=== PATIENT | male | born 1960 ===

== ENCOUNTER 2017-06-28 08:08 | Day surgery (SDC) | payer OTHER ==
[2017-06-23 14:53] VITALS: BMI 32.9
[2017-06-28] MEDS ORDERED: Propofol 10 mg/ml Inj (20 ML) ONE (09:15)
[2017-06-28] MEDS ORDERED: Lactated Ringer's 1,000 ML IV ONE (09:17)
[2017-06-28 09:20] VITALS: RESP 18
[2017-06-28] MEDS ORDERED: cefTRIAXone (Rocephin) 1 gm Inj ONE (09:43)
[2017-06-28] MEDS ORDERED: cefTRIAXone (Rocephin) 1 gm Inj IM ONE (10:45)
[2017-06-28] MEDS ORDERED: Dexamethasone 4 mg/1 ml ONE (10:48)
[2017-06-28] MEDS ORDERED: HYDROmorphone 0.5 mg/0.5 ml ISec IVP PRN (11:09)
[2017-06-28] MEDS ORDERED: Lactated Ringer's 1,000 ML IV SCH (11:09)
[2017-06-28 14:13] VITALS: BP 117/70; PULSE 79; TEMP 97.5; O2SAT 95
--- NOTE | 2017-06-28 20:14 | OP ---
PROCEDURE DATE: 06/28/2017 PREOPERATIVE DIAGNOSIS: Urethral stricture. POSTOPERATIVE DIAGNOSES: Urethral stricture and multiple bladder calculi. PROCEDURE PERFORMED: Cystoscopy with urethral dilatation followed by evacuation of multiple small bladder calculi. DESCRIPTION OF PROCEDURE: The patient was placed on the operating table in a dorsal lithotomy position. The area of the groin was draped and prepped in sterile manner. He was given general anesthesia. I could not insert the #21 cystoscope into the urethra, had to dilate from a size 14 to a size 24 Palauan. Following this, I was able to insert the cystoscope, entered into the bladder. In the bladder, there was multiple small bladder calculi noted throughout the bladder floor. I was able to aspirate those out. I evaluated the bladder completely. There was no evidence of any lesions in the bladder. No evidence of any diverticuli. The prostate, there seemed to be many of these small calculi at the level of the skin of the prostatic urethra, but otherwise, the prostatic urethra appeared to be amply open. Once I aspirated all the visual calculi, I then removed the cystoscope and inserted a #24-Palauan 2-way Navarrete for dilatation purposes. The patient then was taken from the operating room in good condition. No blood loss. Nieves Coates MD
== END 2017-06-28 14:21 | disposition home or self-care (01) ==
LOC: H.OPSURG 08:08
PROVIDERS: ATTEND Urology
DX: N35.9 Urethral stricture, unspecified (principal); N40.0 Benign prostatic hyperplasia without lower urinary tract symptoms; E11.9 Type 2 diabetes mellitus without complications; E78.5 Hyperlipidemia, unspecified; I10 Essential (primary) hypertension

== ENCOUNTER 2017-08-16 03:51 | Emergency (ER) | payer OTHER ==
[2017-08-16 03:52] VITALS: BMI 32.9
[2017-08-16 04:04] VITALS: BP 142/81; PULSE 68; RESP 18; TEMP 98.1; O2SAT 98
[2017-08-16] MEDS ORDERED: Sodium Chloride 0.9% 1,000 ML IV SCH (04:45)
--- NOTE | 2017-08-16 04:51 | ED PDOC ---
HPI: Abdomen <Rafaela Gruber - Last Filed: 08/16/17 05:13> Chief Complaint (Provider): Abdominal Pain History Per: Patient History/Exam Limitations: no limitations Onset/Duration Of Symptoms: Days (1) Current Symptoms Are (Timing): Still Present Pain Scale Rating Of: 8 Location Of Pain/Discomfort: RLQ (radiating into groin) Quality Of Discomfort: Sharp Associated Symptoms: denies: Fever, Chills, Nausea, Vomiting, Diarrhea Alleviating Factors: None <Trang Morin - Last Filed: 08/16/17 06:02> Time Seen by Provider: 08/16/17 04:14 Chief Complaint (Nursing): Abdominal Pain Additional Complaint(s): 57 y/o M with PMH including NIDDM2 and bladder calculi presents with 1 day history of severe right flank pain radiating into the right groin. Patient reports first noticing gross hematuria for the last 3 days. He then noted a brief episode of flank pain 1 day ago which was self limited. Two hours prior to assessment, patient began experiencing moderate/severe pain which has been constant. No alleviating or aggravating factors noted. Patient denies associated fevers, chills, chest pain, sob, nausea, vomiting or diarrhea. Notably, patient had a cystoscopy performed on 06/28/17 due to urethral stricture which detected multiple bladder calculi, which were evacuated at that time. Patient had been planning to follow up with his urologist, Dr Coates, but has not followed up to date. PMD: Dr Shari King (Trang Morin) Supervising Attending Note - Supervising Attending Note The Documented history was done by the: [employer], Attending Physician The documented physical exam was done by the: [employer], Attending Physician The documented procedures were done by the: [employer], Attending Physician - Attestation: I have personally seen and examined this patient.: Yes I have fully participated in the care of the patient.: Yes I have reviewed all pertinent clinical information: Yes <Rafaela Gruber - Last Filed: 08/16/17 05:13> Past Medical History <Rafaela Gruber - Last Filed: 08/16/17 05:13> - Medical History PMH: Diabetes (NIDDM2), Hypercholesterolemia Denies: Chronic Kidney Disease - Family History Family History: States: Unknown Family Hx <Trang Morin - Last Filed: 08/16/17 06:02> Vital Signs: Last Vital Signs Temp 98.1 F 08/16/17 03:57 Pulse 68 08/16/17 03:57 Resp 18 08/16/17 03:57 BP 142/81 08/16/17 03:57 Pulse Ox 98 08/16/17 06:01 - Home Medications Home Medications: Ambulatory Orders Medication Instructions Recorded Aspirin [Aspirin Chewable] 81 mg PO DAILY 06/28/17 Glimepiride [Amaryl] 1 mg PO BID 06/28/17 MetFORMIN [glucoPHAGE] 1,000 mg PO BID 06/28/17 Omega3/Dha/Epa/Fish Oil/Vit D3 1 units PO BID 06/28/17 [[place]-3 + Vitamin D3 Softgel] Pravastatin Sodium [Pravachol] 20 mg PO HS 06/28/17 Ciprofloxacin HCl [Cipro] 500 mg PO BID #14 tablet 08/16/17 Tamsulosin [Flomax] 0.4 mg PO DAILY #15 cap 08/16/17 - Allergies Allergies/Adverse Reactions: Allergies Allergy/AdvReac Type Severity Reaction Status Date / Time No Known Allergies Allergy Verified 06/28/17 08:38 Review of Systems ROS Statement: Except As Marked, All Systems Reviewed And Found Negative <Trang Morin - Last Filed: 08/16/17 06:02> Physical Exam - Physical Exam Appears: Positive for: No Acute Distress, Uncomfortable Head Exam: Positive for: ATRAUMATIC, NORMAL INSPECTION, NORMOCEPHALIC Eye Exam: Positive for: Normal appearance, EOMI, PERRL Cardiovascular/Chest: Positive for: Regular Rate, Rhythm, Chest Non Tender. Negative for: Edema, Murmur Respiratory: Positive for: Normal Breath Sounds. Negative for: Stridor, Wheezing, Respiratory Distress Gastrointestinal/Abdominal: Positive for: Bowel Sounds (regular), Soft, Tenderness (RLQ/Right flank). Negative for: Distended, Guarding, Rebound Extremity: Negative for: Pedal Edema Neurologic/Psych: Positive for: Alert, Oriented <Trang Morin - Last Filed: 08/16/17 06:02> <Rafaela Gruber - Last Filed: 08/16/17 05:13> - Laboratory Results Result Diagrams: 08/16/17 04:50 08/16/17 04:50 - ECG O2 Sat by Pulse Oximetry: 98 - Progress Re-evaluation Time: 05:50 Condition: Re-examined, Improved <Trang Morin - Last Filed: 08/16/17 06:02> - Progress ED Course And Treament: CT Abd detects a right sided ureteral stone measuring 6mm. Pain has resolved with administration of toradol. Discussed findings with patient who agrees with trial of medical expulsive therapy. (Trang Morin) Disposition <Rafaela Gruber - Last Filed: 08/16/17 05:13> - Patient ED Disposition Is Patient to be Admitted: No Counseled Patient/Family Regarding: Studies Performed, Diagnosis, Need For Followup - Disposition Disposition: Routine/Home Disposition Time: 06:00 <Trang Morin - Last Filed: 08/16/17 06:02> - Clinical Impression Clinical Impression: Ureteral calculus, right, Ureteral stone with hydronephrosis - Disposition Referrals: Shari King [Medical Doctor] - Nieves Coates MD [Medical Doctor] - Condition: STABLE Additional Instructions: Follow up with your PCP/Urologist within 1-2 days ED precautions given Prescriptions: Ciprofloxacin HCl [Cipro] 500 mg PO BID #14 tablet Tamsulosin [Flomax] 0.4 mg PO DAILY #15 cap Instructions: Ureteral Stones (ED) Forms: [facility] ED School/Work Excuse
[2017-08-16 05:12] LABS: BASO % 0.4 % (0.0-2.0); EOS # 0.1 K/uL (0.0-0.7); EOS % 0.7 % (0.0-4.0); HEMATOCRIT 44.9 % (35.0-51.0); LYMPH # 1.3 K/uL (1.0-4.3); LYMPH % 9.9 % (20.0-40.0); MEAN CELL VOLUME 86.3 fl (80.0-94.0); MEAN CORPUSCULAR HEMOGLOBIN 29.2 pg (27.0-31.0); MEAN CORPUSCULAR HGB CONC 33.9 g/dL (33.0-37.0); MEAN PLATELET VOLUME 9.1 fl (7.2-11.7); MONO # 1.1 K/uL (0.0-0.8); MONO % 7.9 % (0.0-10.0); NEUT # 10.9 K/uL (1.8-7.0); NEUT % 81.1 % (50.0-75.0); NRBC % 0.1 % (0.0-0.0); PLATELET COUNT 231 K/uL (130-400); RED CELL DISTRIBUTION WIDTH 13.1 % (11.5-14.5); WHITE BLOOD COUNT 13.4 K/uL (4.8-10.8)
[2017-08-16 05:22] LABS: ALB/GLOB RATIO 1.5 (1.0-2.1); ALKALINE PHOSPHATASE 80 U/L (38-126); ALT/SGPT 54 U/L (21-72); AST/SGOT 30 U/L (17-59); BILIRUBIN,TOTAL 0.7 mg/dl (0.2-1.3); BLOOD UREA NITROGEN 17 mg/dl (9-20); CALCIUM 9.4 mg/dL (8.4-10.2); CARBON DIOXIDE 23 mmol/L (22-30); CHLORIDE 103 mmol/L (98-107); GFR AFRICAN-AMERICAN > 60; GLUCOSE,RANDOM 252 mg/dL (75-110); POTASSIUM 4.3 MMOL/L (3.6-5.0); SODIUM 141 mmol/l (132-148); TOTAL PROTEIN 6.9 G/DL (6.3-8.2)
[2017-08-16 06:05] LABS: RBC URINE 311 /hpf (0-3); URINE BACTERIA OCC (<OCC); URINE BILIRUBIN NEGATIVE (NEGATIVE); URINE BLOOD LARGE (NEGATIVE); URINE CALCIUM OXALATE CRYSTALS MANY /hpf (<OCC); URINE COLOR YELLOW (YELLOW); URINE GLUCOSE (UA) 50 mg/dL (Normal); URINE KETONE NEGATIVE (NEGATIVE); URINE LEUKOCYTE ESTERASE NEG Leu/uL (Negative); URINE PROTEIN 30 mg/dL (NEGATIVE); URINE URIC ACID CRYSTALS MANY /hpf (<OCC); URINE UROBILINOGEN 0.2-1.0 mg/dL (0.2-1.0); WBC URINE 32 /hpf (0-5)
[2017-08-16 07:08] LABS: EOSINOPHIL 1 % (0-7); LARGE PLATELETS PRESENT; NEUTROPHIL 83 % (42-75); TOTAL CELLS COUNTED 100
--- NOTE | 2017-08-16 09:42 | CT ---
PROCEDURE: CT Abdomen and Pelvis without intravenous contrast HISTORY: Right flank pain radiating to groin with hx stones COMPARISON: None. TECHNIQUE: CT scan of the abdomen and pelvis was performed without administration of intravenous contrast. Oral contrast was not administered. Coronal and sagittal reformatted images were obtained. Radiation dose: Total exam DLP = 668.38 mGy-cm. This CT exam was performed using one or more of the following dose reduction techniques: Automated exposure control, adjustment of the mA and/or kV according to patient size, and/or use of iterative reconstruction technique. FINDINGS: LOWER THORAX: There is linear atelectasis/scarring in the left lower lobe. The right lung base is clear. LIVER: There is moderate hepatomegaly. There is fatty infiltration in the liver with focal fatty sparing in the left hepatic lobe. No intrahepatic biliary ductal dilatation. GALLBLADDER AND BILE DUCTS: There are no calcified gallstones. PANCREAS: The pancreas is normal in size without ductal dilatation or calcifications. SPLEEN: The spleen is normal in size. ADRENALS: Both adrenal glands are normal in size without discrete nodule. KIDNEYS AND URETERS: There is a 4 mm obstructing stone at the right UP junction with mild dilatation of the renal pelvis, mild hydronephrosis, edema and enlargement of the right kidney and significant perinephric inflammatory changes. The left kidney is normal in size without hydronephrosis or nephrolithiasis. There is a 4 cm simple cyst in the right lower pole. VASCULATURE: No aortic aneurysm. BOWEL: The small bowel loops are normal in caliber. No bowel dilatation or obstruction. APPENDIX: Normal appendix. PERITONEUM: No free fluid. No free air. LYMPH NODES: No enlarged lymph nodes. BLADDER: Grossly normal in appearance. REPRODUCTIVE: The prostate gland is normal in size. BONES: No acute fracture. Within normal limits for the patient's age. OTHER FINDINGS: None. IMPRESSION: 1. Mild right obstructive uropathy resulting from a 4 mm stone at the right UV junction. 2. Moderate hepatomegaly. Hepatic steatosis with focal fatty sparing in the left hepatic lobe. A preliminary report was provided by [employer].
== END 2017-08-16 06:26 | disposition home or self-care (01) ==
LOC: H.ER 03:51
DX: N13.2 Hydronephrosis with renal and ureteral calculous obstruction (principal)
CPT/HCPCS: 74176; 80053; 81003; 85025; 96374; 99282; J1885; J7040

== ENCOUNTER 2017-08-20 21:28 | Inpatient (IN) | payer OTHER ==
[2017-08-20 21:28] VITALS: BMI 32.9
[2017-08-20] MEDS ORDERED: cefTRIAXone (Rocephin) 1 gm Inj ONE (23:36)
[2017-08-20 23:40] LABS: BASO % 0.3 % (0.0-2.0); EOS # 0.1 K/uL (0.0-0.7); EOS % 0.6 % (0.0-4.0); HEMATOCRIT 47.4 % (35.0-51.0); LYMPH # 1.2 K/uL (1.0-4.3); LYMPH % 10.3 % (20.0-40.0); MEAN CELL VOLUME 87.1 fl (80.0-94.0); MEAN CORPUSCULAR HGB CONC 33.3 g/dL (33.0-37.0); MEAN PLATELET VOLUME 9.6 fl (7.2-11.7); MONO % 8.9 % (0.0-10.0); NEUT # 9.1 K/uL (1.8-7.0); NEUT % 79.9 % (50.0-75.0); NRBC % 0.3 % (0.0-0.0); RED CELL DISTRIBUTION WIDTH 12.9 % (11.5-14.5); WHITE BLOOD COUNT 11.4 K/uL (4.8-10.8)
[2017-08-20 23:48] LABS: ALB/GLOB RATIO 1.4 (1.0-2.1); ALKALINE PHOSPHATASE 91 U/L (38-126); ALT/SGPT 52 U/L (21-72); AMYLASE 67 U/L (30-110); AST/SGOT 31 U/L (17-59); BILIRUBIN,TOTAL 1.1 mg/dl (0.2-1.3); BLOOD UREA NITROGEN 20 mg/dl (9-20); CALCIUM 9.4 mg/dL (8.4-10.2); CARBON DIOXIDE 26 mmol/L (22-30); CHLORIDE 97 mmol/L (98-107); GFR AFRICAN-AMERICAN > 60; GLUCOSE,RANDOM 290 mg/dL (75-110); LIPASE 89 U/L (23-300); POTASSIUM 4.3 MMOL/L (3.6-5.0); SODIUM 139 mmol/l (132-148); TOTAL PROTEIN 7.7 G/DL (6.3-8.2)
[2017-08-21] MEDS: Sodium Chloride 0.45% 1,000 ML IV SCH ×3 (01:05→19:30)
[2017-08-21 02:51] LABS: RBC URINE 281 /hpf (0-3); URINE BILIRUBIN NEGATIVE (NEGATIVE); URINE BLOOD LARGE (NEGATIVE); URINE COLOR YELLOW (YELLOW); URINE GLUCOSE (UA) >=500 mg/dL (Normal); URINE KETONE TRACE mg/dL (NEGATIVE); URINE LEUKOCYTE ESTERASE NEG Leu/uL (Negative); URINE PROTEIN 30 mg/dL (NEGATIVE); URINE UROBILINOGEN 0.2-1.0 mg/dL (0.2-1.0); WBC URINE 13 /hpf (0-5)
[2017-08-21] MEDS ORDERED: Iohexol 300 100 ML IJ ONE (03:21)
[2017-08-21] MEDS ORDERED: Sodium Chloride 0.9% 50 ML IV ONE (03:21)
[2017-08-21] MEDS ORDERED: Lidocaine 2% Jelly (Uro-Jet) ONE (04:13)
[2017-08-21] MEDS ORDERED: Lidocaine 2% Jelly (5 ml) TOP ONE (04:13)
--- NOTE | 2017-08-21 04:31 | CP.PCM.PN ---
Subjective - Date & Time of Evaluation Date of Evaluation: 08/21/17 Time of Evaluation: 04:27 - Subjective Subjective: UROLOGY Came in tonight to see patient who has persistant [ain. I came in to see the ct I ordered and there appears to be obvious urine extravasation. JJ stent appears to be in place bladder quite distended. I decided to insert a carlisle to facilitate complete bladder drainage and avoid back pressure Objective - Vital Signs/Intake and Output Vital Signs (last 24 hours): Temp Pulse Resp BP Pulse Ox 98.3 F 57 L 18 143/81 98 08/20/17 21:34 08/20/17 21:34 08/20/17 21:34 08/20/17 21:34 08/20/17 21:34 - Medications Medications: Current Medications Sodium Chloride (Sodium Chloride 0.45%) 1,000 mls @ 80 mls/hr IV .[id number] RAQUEL Stop: 08/22/17 00:37 Last Admin: 08/21/17 01:05 Dose: 80 mls/hr Ceftriaxone Sodium 1 gm/ (Sodium Chloride) 100 mls @ 100 mls/hr IVPB DAILY RAQUEL PRN Reason: Protocol Morphine Sulfate (Morphine) 2 mg IVP Q6 PRN PRN Reason: Pain, severe (8-10) Ondansetron HCl (Zofran Inj) 4 mg IVP Q6 PRN PRN Reason: Nausea/Vomiting - Labs Labs: 08/20/17 23:37 08/20/17 23:37
[2017-08-21 06:50] LABS: BASO % 0.2 % (0.0-2.0); EOS # 0.1 K/uL (0.0-0.7); EOS % 0.9 % (0.0-4.0); HEMATOCRIT 43.7 % (35.0-51.0); LYMPH # 1.2 K/uL (1.0-4.3); LYMPH % 9.9 % (20.0-40.0); MEAN CELL VOLUME 86.8 fl (80.0-94.0); MEAN CORPUSCULAR HEMOGLOBIN 28.9 pg (27.0-31.0); MEAN CORPUSCULAR HGB CONC 33.3 g/dL (33.0-37.0); MEAN PLATELET VOLUME 9.1 fl (7.2-11.7); MONO # 1.2 K/uL (0.0-0.8); MONO % 9.7 % (0.0-10.0); NEUT # 9.6 K/uL (1.8-7.0); NEUT % 79.3 % (50.0-75.0); NRBC % 0.1 % (0.0-0.0); PLATELET COUNT 267 K/uL (130-400); WHITE BLOOD COUNT 12.1 K/uL (4.8-10.8)
--- NOTE | 2017-08-21 10:34 | RAD ---
HISTORY: Evaluate right ureteral stent COMPARISON: 08/21/2017 CT abdomen and pelvis FINDINGS: BOWEL: Normal. No obstruction. No free air. BONES: Normal. OTHER FINDINGS: Position of the double J stent catheter(s): Satisfactory position on the right IMPRESSION: Satisfactory position of unilateral, right double-J stent catheter.
[2017-08-21] MEDS: GlipiZIDE 5 mg SR Tab PO SCH (11:08)
[2017-08-21 11:11] LABS: EOSINOPHIL 1 % (0-7); LARGE PLATELETS PRESENT; NEUTROPHIL 79 % (42-75); TOTAL CELLS COUNTED 100
--- NOTE | 2017-08-21 13:54 | CT ---
PROCEDURE: CT Abdomen and Pelvis with contrast HISTORY: Abdominal pain COMPARISON: CT abdomen and pelvis without contrast performed 08/16/17 TECHNIQUE: Contrast dose: 90 mL Omnipaque 300 Radiation dose: Total exam DLP = 908.44 mGy-cm. This CT exam was performed using one or more of the following dose reduction techniques: Automated exposure control, adjustment of the mA and/or kV according to patient size, and/or use of iterative reconstruction technique. FINDINGS: LOWER THORAX: Bibasilar atelectasis or infiltrates. No visible pleural effusion or pneumothorax. LIVER: Severe diffuse hypoattenuation of the liver compatible with hepatic steatosis. Suspected focal fatty sparing at the level of the shayne hepatis than left hepatic margin. GALLBLADDER AND BILE DUCTS: Unremarkable. PANCREAS: Unremarkable. SPLEEN: Unremarkable. ADRENALS: Unremarkable. KIDNEYS AND URETERS: Interval placement of a right ureteral stent. The distal portion of the ureteral stent appears coiled within the UVJ/distal ureter. Calculus material within the proximal ureter re-identified. The kidneys enhance symmetrically. 3.8 cm right lower pole renal hypodense lesion measures approximately 13 HU consistent with a cyst. Indeterminate 15 mm left renal hypodensity. Additional too small to characterize renal hypodensities ; statistically likely cysts. VASCULATURE: No aortic aneurysm. BOWEL: Stomach is nondistended. Lack of oral contrast limits evaluation for bowel pathology. Bowel loops appear within normal limits of caliber without evidence of obstruction. APPENDIX: The appendix appears within normal limits of caliber. No secondary signs of acute appendicitis. PERITONEUM: Interval development of fluid seen dissecting along Gerota's fascia in tracking cephalad to the retroperitoneal space bordered by the duodenum and pancreas. No definite free air. LYMPH NODES: No bulky adenopathy identified. BLADDER: Unremarkable. REPRODUCTIVE: The prostate gland measures approximately 4.2 x 4.7 cm. BONES: No acute osseous abnormality detected. OTHER FINDINGS: None. IMPRESSION: Interval development of fluid seen dissecting along Gerota's fascia in tracking cephalad to the retroperitoneal space bordered by the duodenum and pancreas. Appearance consistent with urinoma. Correlate clinically. Interval placement of right ureteral stent with distal aspect appearing coiled within the UVJ/distal right ureter. Calculus re-identified within the proximal right ureter. Right renal hypodensity, likely cyst. Indeterminate 15 mm left renal hypodensity. Additional renal hypodensities too small to definitively characterize. Bibasilar atelectasis/infiltrates. Severe hepatic steatosis with suspected focal fatty sparing as described above. Enlarged heterogeneous prostate gland. Recommend correlation with PSA. Additional findings as above. Preliminary impression was provided by [facility]. Findings discussed with the patient's RN Nguyen on 08/21/17 at 1:49 p.m.
--- NOTE | 2017-08-21 18:21 | CP.PCM.PN ---
Subjective - Date & Time of Evaluation Date of Evaluation: 08/21/17 Time of Evaluation: 18:18 - Subjective Subjective: UROLOGY Pt requiring no pain med today until 1 dose tonight. Abd remains tymaonitic. not painful. Glucose remains high will start insulin overageWill update labs in am and cont iv antibiotics Objective - Vital Signs/Intake and Output Vital Signs (last 24 hours): Temp Pulse Resp BP Pulse Ox 98.3 F 75 20 125/74 95 08/21/17 16:29 08/21/17 16:29 08/21/17 16:29 08/21/17 16:29 08/21/17 16:29 Intake and Output: 08/21/17 08/21/17 06:59 18:59 Intake Total 1000 Output Total 450 Balance 550 - Medications Medications: Current Medications Glipizide (Glucotrol Xl) 5 mg PO BRK [facility] Last Admin: 08/21/17 11:08 Dose: 5 mg Sodium Chloride (Sodium Chloride 0.45%) 1,000 mls @ 80 mls/hr IV .[id number] [facility] Stop: 08/22/17 00:37 Last Admin: 08/21/17 14:37 Dose: 80 mls/hr Ceftriaxone Sodium 1 gm/ (Sodium Chloride) 100 mls @ 100 mls/hr IVPB DAILY [facility] PRN Reason: Protocol Last Admin: 08/21/17 09:39 Dose: 100 mls/hr Insulin Human Regular (Humulin R) 0 units SC ACHS [facility] PRN Reason: Protocol Ketorolac Tromethamine (Toradol) 30 mg IVP Q6 PRN PRN Reason: Pain, moderate (4-7) Last Admin: 08/21/17 17:29 Dose: 30 mg Metformin HCl (Glucophage) 1,000 mg PO BIDWM [facility] Last Admin: 08/21/17 17:02 Dose: 1,000 mg Morphine Sulfate (Morphine) 2 mg IVP Q6 PRN PRN Reason: Pain, severe (8-10) Naproxen (Naprosyn Tab) 375 mg PO Q12 [facility] Ondansetron HCl (Zofran Inj) 4 mg IVP Q6 PRN PRN Reason: Nausea/Vomiting Sodium Phosphate (Fleet Enema) 135 ml NV ONCE ONE Stop: 08/21/17 18:13 - Labs Labs: 08/21/17 07:10 08/20/17 23:37
[2017-08-21] MEDS: Insulin Regular 100 units/ml SC SCH (22:00)
[2017-08-22] MEDS: Sodium Chloride 0.45% 1,000 ML IV SCH ×5 (04:14→21:28)
[2017-08-22] MEDS: Insulin Regular 100 units/ml SC SCH ×4 (06:53→22:03)
[2017-08-22 07:04] LABS: HEMATOCRIT 43.1 % (35.0-51.0); MEAN CELL VOLUME 86.7 fl (80.0-94.0); MEAN CORPUSCULAR HEMOGLOBIN 29.1 pg (27.0-31.0); MEAN CORPUSCULAR HGB CONC 33.6 g/dL (33.0-37.0); WHITE BLOOD COUNT 13.7 K/uL (4.8-10.8)
[2017-08-22 07:24] LABS: BLOOD UREA NITROGEN 16 mg/dl (9-20); CALCIUM 8.7 mg/dL (8.4-10.2); CARBON DIOXIDE 23 mmol/L (22-30); CHLORIDE 100 mmol/L (98-107); GFR AFRICAN-AMERICAN > 60; GLUCOSE,RANDOM 214 mg/dL (75-110); POTASSIUM 4.4 MMOL/L (3.6-5.0); SODIUM 136 mmol/l (132-148)
[2017-08-22] MEDS: GlipiZIDE 5 mg SR Tab PO SCH (09:22)
[2017-08-23] MEDS: Sodium Chloride 0.45% 1,000 ML IV SCH ×4 (06:07→21:25)
[2017-08-23] MEDS: Insulin Regular 100 units/ml SC SCH ×3 (07:33→16:18)
[2017-08-23] MEDS: GlipiZIDE 5 mg SR Tab PO SCH (09:06)
[2017-08-23 11:05] LABS: HEMATOCRIT 41.5 % (35.0-51.0); MEAN CORPUSCULAR HEMOGLOBIN 29.2 pg (27.0-31.0); MEAN CORPUSCULAR HGB CONC 33.9 g/dL (33.0-37.0); RED CELL DISTRIBUTION WIDTH 12.8 % (11.5-14.5); WHITE BLOOD COUNT 16.3 K/uL (4.8-10.8)
[2017-08-23 14:14] LABS: BLOOD UREA NITROGEN 14 mg/dl (9-20); CALCIUM 9.4 mg/dL (8.4-10.2); CARBON DIOXIDE 27 mmol/L (22-30); CHLORIDE 98 mmol/L (98-107); GFR AFRICAN-AMERICAN > 60; GLUCOSE,RANDOM 270 mg/dL (75-110); SODIUM 138 mmol/l (132-148)
[2017-08-23 14:43] LABS: THYROID STIMULATING HORMONE 0.93 mIU/ML (0.46-4.68)
[2017-08-23] MEDS: Meropenem 1 GM in Sodium Chloride 0.9% 100 ML IVPB SCH ×3 (14:50→23:01)
--- NOTE | 2017-08-23 15:24 | CP.PCM.CON ---
History of Present Illness - History of Present Illness History of Present Illness: discussed with DR Karli THOMAS to use Merrem for UTI/ possible retroperitoneal space infection 57 year old male with a past medical history significant for Type 2 diabetes mellitus for which he takes Metformin 1000 mg po BID, history of hypercholesterolemia, and nephrolithiasis and bladder calculi. On 06/28/17 the patient had a cystoscopy performed by Dr. Coates after experiencing hematuria due to urethral stricture. The cystoscopy detected multiple bladder calculi which were evacuated. The patient was admitted on 08/22 for severe pain. The patient was found to have evidence of perforated ureter on admission with CT scan. The patient's pain initially improved, however today the patient developed elevated WBC count of 16. Review of Systems - Constitutional Constitutional: As Per HPI - EENT Eyes: absent: As Per HPI, Blind Spots, Blurred Vision, Change in Vision, Decreased Night Vision, Diplopia, Discharge, Dry Eye, Exophthalmos, Floaters, Irritation, Itchy Eyes, Loss of Peripheral Vision, Pain, Photophobia, Requires Corrective Lenses, Sees Flashes, Spots in Vision, Tunnel Vision, Other Visual Disturbances, Loss of Vision, Other Ears: absent: As Per HPI, Decreased Hearing, Ear Discharge, Ear Pain, Tinnitus, Abnormal Hearing, Disequilibrium, Dizziness, Other Nose/Mouth/Throat: absent: As Per HPI, Epistaxis, Nasal Congestion, Nasal Discharge, Nasal Obstruction, Nasal Trauma, Nose Pain, Post Nasal Drip, Sinus Pain, Sinus Pressure, Bleeding Gums, Change in Voice, Dental Pain, Dry Mouth, Dysphagia, Halitosis, Hoarsness, Lip Swelling, Mouth Lesions, Mouth Pain, Odynophagia, Sore Throat, Throat Swelling, Tongue Swelling, Facial Pain, Neck Pain, Neck Mass, Other - Cardiovascular Cardiovascular: absent: As Per HPI, Acrocyanosis, Chest Pain, Chest Pain at Rest , Chest Pain with Activity, Claudication, Diaphoresis, Dyspnea, Dyspnea on Exertion, Edema, Irregular Heart Rhythm, Pain Radiating to Arm/Neck/Jaw, Leg Edema, Leg Ulcers, Lightheadedness, Orthopnea, Palpitations, Paroxysmal Nocturnal Dyspnea, Pedal Edema, Radiating Pain, Rapid Heart Rate, Slow Heart Rate, Syncope, Other - Respiratory Respiratory: absent: As Per HPI, Cough, Dyspnea, Hemoptysis, Dyspnea on Exertion , Wheezing, Snoring, Stridor, Pain on Inspiration, Chest Congestion, Excessive Mucous Production, Change in Mucous Color, Pain with Coughing, Other - Gastrointestinal Gastrointestinal: absent: As Per HPI, Abdominal Pain, Belching, Bloating, Change in Bowel Habits, Change in Stool Character, Coffee Ground Emesis, Constipation, Cramping, Diarrhea, Dyspepsia, Dysphagia, Early Satiety, Excessive Flatus, Fecal Incontinence, Heartburn, Hematemesis, Hematochezia, Loose Stools, Melena, Nausea, Odynophagia, Temesmus, Vomiting, Other - Genitourinary Genitourinary: As Per HPI - Musculoskeletal Musculoskeletal: absent: As Per HPI, Abnormal Gait, Arthralgias, Atrophy, Back Pain, Deformity, Joint Swelling, Limited Range of Motion, Loss of Height, Muscle Cramps, Muscle Weakness, Myalgias, Neck Pain, Numbness, Radiating Pain into Limb, Stiffness, Tingling, Other - Integumentary Integumentary: absent: As Per HPI, Acne, Alopecia, Bleeding Lesions, Change in Hair, Change in Nails, Change in Pigmentation, Changing Lesions, Dry Skin, Erythema, Furuncle, Hirsutism, Lesions, New Lesions, Non-Healing Lesions, Photosensitivity, Pruritus, Rash, Skin Pain, Skin Ulcer, Sores, Striae, Swelling , Unusual Bruising, Wounds, Jaundice, Other - Neurological Neurological: absent: As Per HPI, Abnormal Gait, Abnormal Hearing, Abnormal Movements, Abnormal Speech, Behavioral Changes, Burning Sensations, Confusion, Convulsions, Disequilibrium, Dizziness, Numbness, Focal Weakness, Frequent Falls , Headaches, Lack of Coordination, Loss of Vision, Memory Loss, Paresthesias, Radicular Pain, Restless Legs, Sensory Deficit, Syncope, Tingling, Tremor, Vertigo, Weakness, Other Visual Disturbances, Other - Psychiatric Psychiatric: absent: As Per HPI, Abnormal Sleep Pattern, Anhedonia, Anxiety, Auditory Hallucinations, Behavioral Changes, Change in Appetite, Change in Libido, Confusion, Depression, Difficulty Concentrating, Hallucinations, Homicidal Ideation, Hopelessness, Irritability, Memory Loss, Mood Swings, Panic Attacks, Paranoia, Suicidal Ideation, Visual Hallucinations, Tactile Hallucinations, Other - Endocrine Endocrine: absent: As Per HPI, Change in Body Appearance, Change in Libido, Cold Intolorance, Deepening of Voice, Excessive Sweating, Fatigue, Flushing, Heat Intolorance, Increase in Ring/Shoe/Hat Size, Palpitations, Polydipsia, Polyphagia, Polyuria, Other - Hematologic/Lymphatic Hematologic: absent: As Per HPI, Easy Bleeding, Easy Bruising, Lymphadenopathy, Other Past Patient History - Past Medical History & Family History Past Medical History?: Yes - Past Social History Smoking Status: Never Smoked - CARDIAC Hx Cardiac Disorders: Yes Hx Hypercholesterolemia: Yes - PULMONARY Hx Respiratory Disorders: No - NEUROLOGICAL Hx Neurological Disorder: No - HEENT Hx HEENT Problems: No - RENAL Hx Chronic Kidney Disease: No - ENDOCRINE/METABOLIC Hx Endocrine Disorders: Yes Hx Diabetes Mellitus Type 2: Yes - HEMATOLOGICAL/ONCOLOGICAL Hx Blood Disorders: No Hx AIDS: No Hx Human Immunodeficiency Virus (HIV): No - INTEGUMENTARY Hx Dermatological Problems: No - MUSCULOSKELETAL/RHEUMATOLOGICAL Hx Musculoskeletal Disorders: No Hx Falls: No - GASTROINTESTINAL Hx Gastrointestinal Disorders: No - GENITOURINARY/GYNECOLOGICAL Hx Genitourinary Disorders: No - PSYCHIATRIC Hx Psychophysiologic Disorder: No Hx Substance Use: No - SURGICAL HISTORY Hx Surgeries: Yes Hx Herniorrhaphy: Yes (INGUINAL HERNIA LEFT X2) Other/Comment: YSTOSCOPY .LEFT ELBOW - ANESTHESIA Hx Anesthesia: Yes Hx Anesthesia Reactions: No Hx Malignant Hyperthermia: No Meds Allergies/Adverse Reactions: Allergies Allergy/AdvReac Type Severity Reaction Status Date / Time No Known Allergies Allergy Verified 06/28/17 08:38 - Medications Medications: Current Medications Glipizide (Glucotrol Xl) 10 mg PO BRK [facility] Sodium Chloride (Sodium Chloride 0.45%) 1,000 mls @ 120 mls/hr IV .Q8H20M [facility] Stop: 08/25/17 19:06 Last Admin: 08/23/17 14:48 Dose: Not Given Meropenem 1 gm/ Sodium (Chloride) 100 mls @ 100 mls/hr IVPB Q8 [facility] PRN Reason: Protocol Last Admin: 08/23/17 14:50 Dose: 100 mls/hr Insulin Human Regular (Humulin R) 0 units SC ACHS [facility] PRN Reason: Protocol Last Admin: 08/23/17 11:30 Dose: 6 u Ketorolac Tromethamine (Toradol) 30 mg IVP Q6 PRN PRN Reason: Pain, moderate (4-7) Last Admin: 08/22/17 10:58 Dose: 30 mg Metformin HCl (Glucophage) 1,000 mg PO BIDWM [facility] Last Admin: 08/23/17 09:06 Dose: 1,000 mg Morphine Sulfate (Morphine) 2 mg IVP Q6 PRN PRN Reason: Pain, severe (8-10) Naproxen (Naprosyn Tab) 375 mg PO Q12 [facility] Last Admin: 08/23/17 09:05 Dose: 375 mg Ondansetron HCl (Zofran Inj) 4 mg IVP Q6 PRN PRN Reason: Nausea/Vomiting Physical Exam - Constitutional Appears: Non-toxic, Chronically Ill - Head Exam Head Exam: NORMOCEPHALIC - Eye Exam Eye Exam: PERRL. absent: Scleral icterus - ENT Exam ENT Exam: Mucous Membranes Dry, Normal External Ear Exam - Neck Exam Neck exam: Negative for: Lymphadenopathy - Respiratory Exam Respiratory Exam: Decreased Breath Sounds, Clear to Auscultation Bilateral - Cardiovascular Exam Cardiovascular Exam: REGULAR RHYTHM, +S1, +S2 - GI/Abdominal Exam GI & Abdominal Exam: Diminished Bowel Sounds, Soft. absent: Tenderness - Rectal Exam Rectal Exam: Deferred - Exam Exam: absent: NORMAL INSPECTION - Extremities Exam Extremities exam: Positive for: pedal pulses present. Negative for: calf tenderness, pedal edema, tenderness - Back Exam Back exam: CVA tenderness (R), NORMAL INSPECTION. absent: CVA tenderness (L), paraspinal tenderness - Neurological Exam Neurological exam: Alert, Oriented x3 - Psychiatric Exam Psychiatric exam: Normal Mood - Skin Skin Exam: Dry, Intact Results - Vital Signs Recent Vital Signs: Last Vital Signs Temp 98 F 08/23/17 08:11 Pulse 101 H 08/23/17 08:11 Resp 20 08/23/17 08:11 BP 115/77 08/23/17 08:11 Pulse Ox 93 L 08/23/17 08:11 - Labs Result Diagrams: 08/25/17 05:55 08/25/17 05:55 Labs: Laboratory Results - last 24 hr 08/22/17 08/22/17 08/23/17 16:32 21:35 05:23 WBC RBC Hgb Hct MCV MCH MCHC RDW Plt Count Sodium Potassium Chloride Carbon Dioxide Anion Gap BUN Creatinine Est GFR ( Amer) Est GFR (Non-Af Amer) POC Glucose (mg/dL) 278 H 273 H 220 H Random Glucose Calcium TSH 3rd Generation 08/23/17 08/23/17 08/23/17 10:40 11:09 13:40 WBC 16.3 H RBC 4.83 Hgb 14.1 Hct 41.5 MCV 86.0 MCH 29.2 MCHC 33.9 RDW 12.8 Plt Count 235 Sodium 138 Potassium 4.0 Chloride 98 Carbon Dioxide 27 Anion Gap 17 BUN 14 Creatinine 1.0 Est GFR ( Amer) > 60 Est GFR (Non-Af Amer) > 60 POC Glucose (mg/dL) 304 H Random Glucose 270 H Calcium 9.4 TSH 3rd Generation 0.93 Assessment & Plan (1) Retroperitoneal infection Status: Acute (2) Urinoma Status: Acute (3) Uncontrolled type II diabetes mellitus Status: Chronic (4) Ureteral calculus, right Status: Acute (5) Ureteral stone with hydronephrosis Status: Acute - Assessment and Plan (Free Text) Assessment: cont merrem iv
--- NOTE | 2017-08-23 19:20 | CP.PCM.HP ---
History of Present Illness - History of Present Illness History of Present Illness: This is Internal medicine consultation note, note H&P This is a 57 year old male with a past medical history significant for Type 2 diabetes mellitus for which he takes Metformin 1000 mg po BID, history of hypercholesterolemia, and nephrolithiasis and bladder calculi. On 06/28/17 the patient had a cystoscopy performed by Dr. Coates after experiencing hematuria due to urethral stricture. The cystoscopy detected multiple bladder calculi which were evacuated. The patient was admitted on 08/22 for severe pain. The patient was found to have evidence of perforated ureter on admission with CT scan. The patient's pain initially improved, however today the patient developed elevated WBC count of 16. She has also been found to have blood glucose levels consistently in the mid 200's, once today above 300. The hospitalist group is consulted for management of her diabetes and for further workup. Dr. Freeman is on consultation and has recommended Meropenem for IV antibiotic. Patient is hemodynamically stable and states his pain is improved at this time. ROS as below. Present on Admission - Present on Admission Any Indicators Present on Admission: No Urinary Catheter: Yes Review of Systems - Hematologic/Lymphatic Additional comments: REVIEW OF SYSTEMS: CONSTITUTIONAL: + Fatigue. No weight loss, fever, chills, weakness. HEENT: Eyes: No visual loss, blurred vision, double vision or yellow sclerae. Ears, Nose, Throat: No hearing loss, sneezing, congestion, runny nose or sore throat. SKIN: No rash or itching. CARDIOVASCULAR: No chest pain, chest pressure or chest discomfort. No palpitations or edema. RESPIRATORY: No sob, cough, or congestion GASTROINTESTINAL: No anorexia, nausea, vomiting or diarrhea. + Mild suprapubic abdominal pain GENITOURINARY: + hematuria, + dysuria, no cloudiness. + hx enlarged prostate NEUROLOGICAL: No headache, dizziness, syncope, paralysis, ataxia, numbness or tingling in the extremities. No change in bowel or bladder control. MUSCULOSKELETAL: No muscle, back pain, joint pain or stiffness. HEMATOLOGIC: No anemia, bleeding or bruising. LYMPHATICS: No enlarged nodes. No history of splenectomy. PSYCHIATRIC: No history of depression or anxiety. ENDOCRINOLOGIC: No reports of sweating, cold or heat intolerance. No polyuria or polydipsia. ALLERGIES: No history of asthma, hives, eczema or rhinitis. Past Patient History - Infectious Disease Hx of Infectious Diseases: None - Past Medical History & Family History Past Medical History?: Yes - Past Social History Smoking Status: Never Smoked - CARDIAC Hx Cardiac Disorders: Yes Hx Hypercholesterolemia: Yes - PULMONARY Hx Respiratory Disorders: No - NEUROLOGICAL Hx Neurological Disorder: No - HEENT Hx HEENT Problems: No - RENAL Hx Chronic Kidney Disease: No - ENDOCRINE/METABOLIC Hx Endocrine Disorders: Yes Hx Diabetes Mellitus Type 2: Yes - HEMATOLOGICAL/ONCOLOGICAL Hx Blood Disorders: No Hx AIDS: No Hx Human Immunodeficiency Virus (HIV): No - INTEGUMENTARY Hx Dermatological Problems: No - MUSCULOSKELETAL/RHEUMATOLOGICAL Hx Musculoskeletal Disorders: No Hx Falls: No - GASTROINTESTINAL Hx Gastrointestinal Disorders: No - GENITOURINARY/GYNECOLOGICAL Hx Genitourinary Disorders: No - PSYCHIATRIC Hx Psychophysiologic Disorder: No Hx Substance Use: No - SURGICAL HISTORY Hx Surgeries: Yes Hx Herniorrhaphy: Yes (INGUINAL HERNIA LEFT X2) Other/Comment: YSTOSCOPY .LEFT ELBOW - ANESTHESIA Hx Anesthesia: Yes Hx Anesthesia Reactions: No Hx Malignant Hyperthermia: No Meds Allergies/Adverse Reactions: Allergies Allergy/AdvReac Type Severity Reaction Status Date / Time No Known Allergies Allergy Verified 06/28/17 08:38 Physical Exam - Additional Findings Additional findings: PHYSICAL EXAMINATION: GENERAL: The patient is alert and oriented x 3, appears comfortable HEENT: Normocephalic, atraumatic. Extraocular movements intact. No sinus tenderness. Oropharynx clear. Mucous membranes are moist. no scleral icterus NECK: Supple without lymph node. CHEST: CTA bilaterally, no wheezes, rales, or rhonchi HEART: S1, S2. regular rate and rhythm ABDOMEN: Soft, nontender, nondistended No organomegaly. EXTREMITIES: No cyanosis, clubbing or edema. : + 2 way Navarrete catheter placed, + hematuria, clear urine, no pus NEUROLOGIC: No focal deficit. No sensory deficit. PSYCHOSOCIAL: No signs of depression and is nonfocal. INTEGUMENT: Moist mucous membranes. Good skin turgor, intact. Results - Vital Signs Recent Vital Signs: Last Vital Signs Temp 98.6 F 08/23/17 16:09 Pulse 106 H 08/23/17 16:09 Resp 18 08/23/17 16:09 BP 126/83 08/23/17 16:09 Pulse Ox 93 L 08/23/17 16:09 - Labs Result Diagrams: 08/23/17 10:40 08/23/17 13:40 Labs: Laboratory Results - last 24 hr 08/22/17 08/23/17 08/23/17 21:35 05:23 10:40 WBC 16.3 H RBC 4.83 Hgb 14.1 Hct 41.5 MCV 86.0 MCH 29.2 MCHC 33.9 RDW 12.8 Plt Count 235 Sodium Potassium Chloride Carbon Dioxide Anion Gap BUN Creatinine Est GFR ( Amer) Est GFR (Non-Af Amer) POC Glucose (mg/dL) 273 H 220 H Random Glucose Calcium TSH 3rd Generation 08/23/17 08/23/17 08/23/17 11:09 13:40 15:35 WBC RBC Hgb Hct MCV MCH MCHC RDW Plt Count Sodium 138 Potassium 4.0 Chloride 98 Carbon Dioxide 27 Anion Gap 17 BUN 14 Creatinine 1.0 Est GFR ( Amer) > 60 Est GFR (Non-Af Amer) > 60 POC Glucose (mg/dL) 304 H 268 H Random Glucose 270 H Calcium 9.4 TSH 3rd Generation 0.93 Assessment & Plan - Assessment and Plan (Free Text) Plan: ASSESSMENT - Possible ureter perforation with possible infection and rising leukocytosis, WBC 13.7 -> 16.3 - Uncontrolled type 2 Diabetes mellitus, uncontrolled BS likely due to elevated blood sugars - Hypercholesterolemia PLAN - Increase Glipizide from 5 mg po daily to 10 mg po daily - Continue Metformin 1000 mg po BID [facility] - Change regular insulin sliding scale to Lispro - Pain medication Toradol 30 mg IVP q6h - continue Merrem as per ID - Continue to trend WBC- if continuing to rise, would repeat CT scan tomorrow - Zofran PRN for nausea/vomiting - continue normal saline at 120 cc/hour - Consistent carbohydrate diet - Thank you very much for the consultation
[2017-08-23] MEDS: Insulin Lispro (humaLOG) 100 Units/ml Inj SC SCH (22:48)
[2017-08-24] MEDS: Sodium Chloride 0.45% 1,000 ML IV SCH ×4 (04:57→14:00)
[2017-08-24] MEDS: Meropenem 1 GM in Sodium Chloride 0.9% 100 ML IVPB SCH ×3 (06:55→22:02)
[2017-08-24] MEDS: Insulin Lispro (humaLOG) 100 Units/ml Inj SC SCH ×4 (07:28→21:46)
[2017-08-24] MEDS: GlipiZIDE 10 mg SR Tab PO SCH (08:43)
--- NOTE | 2017-08-24 11:42 | CP.PCM.PN ---
Subjective - Date & Time of Evaluation Date of Evaluation: 08/24/17 Time of Evaluation: 09:00 - Subjective Subjective: c/o flank pain right mild tenderness no fever Objective - Vital Signs/Intake and Output Vital Signs (last 24 hours): Temp Pulse Resp BP Pulse Ox 98.1 F 91 H 20 113/73 96 08/24/17 07:28 08/24/17 07:28 08/24/17 07:28 08/24/17 07:28 08/24/17 07:28 Intake and Output: 08/24/17 08/24/17 06:59 18:59 Intake Total 2440 Output Total 1000 Balance 1440 - Medications Medications: Current Medications Glipizide (Glucotrol Xl) 10 mg PO BRK [facility] [place] Last Admin: 08/24/17 08:43 Dose: 10 mg Sodium Chloride (Sodium Chloride 0.45%) 1,000 mls @ 120 mls/hr IV .Q8H20M [facility] [place] Stop: 08/25/17 19:06 Last Admin: 08/24/17 07:09 Dose: Not Given Meropenem 1 gm/ Sodium (Chloride) 100 mls @ 100 mls/hr IVPB Q8@0700,1500,2300 [facility] [place] PRN Reason: Protocol Last Admin: 08/24/17 06:55 Dose: 100 mls/hr Insulin Human Lispro (Humalog) 0 units SC ACHS [facility] [place] PRN Reason: Protocol Last Admin: 08/24/17 11:36 Dose: 4 u Ketorolac Tromethamine (Toradol) 30 mg IVP Q6 PRN PRN Reason: Pain, moderate (4-7) Last Admin: 08/22/17 10:58 Dose: 30 mg Metformin HCl (Glucophage) 1,000 mg PO BIDWM [facility] [place] Last Admin: 08/24/17 08:43 Dose: 1,000 mg Naproxen (Naprosyn Tab) 375 mg PO Q12 [facility] [place] Last Admin: 08/24/17 08:44 Dose: 375 mg Ondansetron HCl (Zofran Inj) 4 mg IVP Q6 PRN PRN Reason: Nausea/Vomiting - Labs Labs: 08/23/17 10:40 08/23/17 13:40 - Constitutional Appears: Non-toxic, Chronically Ill - Head Exam Head Exam: NORMOCEPHALIC - Eye Exam Eye Exam: PERRL - ENT Exam ENT Exam: Mucous Membranes Dry - Neck Exam Neck Exam: absent: Lymphadenopathy - Respiratory Exam Respiratory Exam: Decreased Breath Sounds, Clear to Ausculation Bilateral - Cardiovascular Exam Cardiovascular Exam: REGULAR RHYTHM - GI/Abdominal Exam GI & Abdominal Exam: Distended, Soft, Tenderness - Rectal Exam Rectal Exam: Deferred - Exam Exam: NORMAL INSPECTION - Extremities Exam Extremities Exam: absent: Calf Tenderness, Pedal Edema - Back Exam Back Exam: CVA tenderness (R). absent: CVA tenderness (L) - Neurological Exam Neurological Exam: Alert, Awake, CN II-XII Intact, Normal Gait, Oriented x3 - Psychiatric Exam Psychiatric exam: Normal Affect - Skin Skin Exam: Dry Assessment and Plan (1) Ureteral calculus, right Status: Acute (2) Ureteral stone with hydronephrosis Status: Acute - Assessment and Plan (Free Text) Assessment: retroperitoneal space infection cont iv rx and follow up imaging await cultures
[2017-08-24 12:14] LABS: HEMATOCRIT 39.6 % (35.0-51.0); MEAN CELL VOLUME 87.2 fl (80.0-94.0); MEAN CORPUSCULAR HEMOGLOBIN 29.7 pg (27.0-31.0); RED CELL DISTRIBUTION WIDTH 12.9 % (11.5-14.5); WHITE BLOOD COUNT 13.7 K/uL (4.8-10.8)
--- NOTE | 2017-08-24 12:55 | CP.PCM.PN ---
Subjective - Date & Time of Evaluation Date of Evaluation: 08/24/17 Time of Evaluation: 11:00 - Subjective Subjective: Pt is afebrile sl anxious bec of his condition denies CP no SOB still with right flank pain and tenderness + Pedal edema Objective - Vital Signs/Intake and Output Vital Signs (last 24 hours): Temp Pulse Resp BP Pulse Ox 98.1 F 91 H 20 113/73 96 08/24/17 07:28 08/24/17 07:28 08/24/17 07:28 08/24/17 07:28 08/24/17 07:28 Intake and Output: 08/24/17 08/24/17 06:59 18:59 Intake Total 2440 Output Total 1000 Balance 1440 - Medications Medications: Current Medications Alprazolam (Xanax) 0.25 mg PO Q12 PRN PRN Reason: Anxiety Stop: 08/31/17 12:55 Glipizide (Glucotrol Xl) 10 mg PO BRK [facility] Last Admin: 08/24/17 08:43 Dose: 10 mg Sodium Chloride (Sodium Chloride 0.45%) 1,000 mls @ 120 mls/hr IV .Q8H20M [facility] Stop: 08/25/17 19:06 Last Admin: 08/24/17 07:09 Dose: Not Given Meropenem 1 gm/ Sodium (Chloride) 100 mls @ 100 mls/hr IVPB Q8@0700,1500,2300 [facility] PRN Reason: Protocol Last Admin: 08/24/17 06:55 Dose: 100 mls/hr Insulin Human Lispro (Humalog) 0 units SC ACHS [facility] PRN Reason: Protocol Last Admin: 08/24/17 11:36 Dose: 4 u Ketorolac Tromethamine (Toradol) 30 mg IVP Q6 PRN PRN Reason: Pain, moderate (4-7) Last Admin: 08/22/17 10:58 Dose: 30 mg Metformin HCl (Glucophage) 1,000 mg PO BIDWM [facility] Last Admin: 08/24/17 08:43 Dose: 1,000 mg Naproxen (Naprosyn Tab) 375 mg PO Q12 [facility] Last Admin: 08/24/17 08:44 Dose: 375 mg Ondansetron HCl (Zofran Inj) 4 mg IVP Q6 PRN PRN Reason: Nausea/Vomiting - Labs Labs: 08/24/17 11:45 08/23/17 13:40 - Constitutional Appears: Non-toxic, No Acute Distress - Head Exam Head Exam: NORMAL INSPECTION, NORMOCEPHALIC - Eye Exam Eye Exam: EOMI, Normal appearance, PERRL Pupil Exam: NORMAL ACCOMODATION, PERRL - ENT Exam ENT Exam: Mucous Membranes Moist, Normal Exam - Neck Exam Neck Exam: Full ROM, Normal Inspection. absent: Lymphadenopathy - Respiratory Exam Respiratory Exam: Clear to Ausculation Bilateral, NORMAL BREATHING PATTERN - Cardiovascular Exam Cardiovascular Exam: REGULAR RHYTHM, +S1, +S2. absent: Murmur - GI/Abdominal Exam GI & Abdominal Exam: Distended, Rigid, Tenderness, Normal Bowel Sounds - Extremities Exam Extremities Exam: Full ROM, Normal Capillary Refill, Normal Inspection. absent : Joint Swelling, Pedal Edema - Back Exam Back Exam: CVA tenderness (R), Full ROM. absent: CVA tenderness (L), paraspinal tenderness - Neurological Exam Neurological Exam: Alert, Awake, CN II-XII Intact, Normal Gait, Oriented x3 Neuro motor strength exam: Left Upper Extremity: 5, Right Upper Extremity: 5, Left Lower Extremity: 5, Right Lower Extremity: 5 - Psychiatric Exam Psychiatric exam: Anxious, Normal Affect, Normal Mood - Skin Skin Exam: Dry, Normal Color, Warm Assessment and Plan (1) Retroperitoneal infection Status: Acute (2) Ureteral stone with hydronephrosis Status: Acute (3) Urinoma Status: Acute (4) Uncontrolled type II diabetes mellitus Status: Chronic - Assessment and Plan (Free Text) Assessment: 57 y/o gent with hx of DM, Ureteral Stone s/p J Stent Placement , came bec of right lower abd , flanks pain radiating to the groin: CT of Abd :Interval development of fluid seen dissecting along Gerota's fascia in tracking cephalad to the retroperitoneal space bordered by the duodenum and pancreas. Appearance consistent with urinoma. Correlate clinically. Interval placement of right ureteral stent with distal aspect appearing coiled within the UVJ/distal right ureter. Calculus re-identified within the proximal right ureter. Right renal hypodensity, likely cyst. Indeterminate 15 mm left renal hypodensity. Additional renal hypodensities too small to definitively characterize. Bibasilar atelectasis/infiltrates. Severe hepatic steatosis with suspected focal fatty sparing as described above. Enlarged heterogeneous prostate gland. Recommend correlation with PSA. (1) Retroperitoneal infection Status: Acute likely due to extravasation of urine cont IV Meropenem Urine c/s ID consulted - Dr mccray Urology - Dr Coates following pt Pain mgt (2) Ureteral stone with hydronephrosis s/p J Stent Placement (3) Urinoma Status: Acute post Ureteral stent palcement Pain mgt Navarrete catheter placed Urology on case (4) Uncontrolled type II diabetes mellitus Status: Chronic HbgAic =9.1 cont Metformin and Glucotrol Add Levemir 10 units q hs accucheck with coverage
--- NOTE | 2017-08-24 16:12 | CP.PCM.PN ---
Subjective - Date & Time of Evaluation Date of Evaluation: 08/24/17 Time of Evaluation: 16:04 - Subjective Subjective: UROLOGY pt seen today he describes his pain level 2 of 10. He feels better when he ambulates. He feels a swelling of his right side. He is having BMs todays labs show WBC down to 13.7. glucose was 187 this am and now 304. carlisle urine is blood tingedHe denies nausea, Plan will lower the iv rate as he is tolerating diet. Cont iv antibiotics monitor glucose. Update labs and decide on further imaging as needed Objective - Vital Signs/Intake and Output Vital Signs (last 24 hours): Temp Pulse Resp BP Pulse Ox 98.1 F 91 H 20 113/73 96 08/24/17 07:28 08/24/17 07:28 08/24/17 07:28 08/24/17 07:28 08/24/17 07:28 Intake and Output: 08/24/17 08/24/17 06:59 18:59 Intake Total 2440 Output Total 1000 Balance 1440 - Medications Medications: Current Medications Alprazolam (Xanax) 0.25 mg PO Q12 PRN PRN Reason: Anxiety Stop: 08/31/17 12:55 Last Admin: 08/24/17 13:54 Dose: 0.25 mg Glipizide (Glucotrol Xl) 10 mg PO BRK [facility] Last Admin: 08/24/17 08:43 Dose: 10 mg Sodium Chloride (Sodium Chloride 0.45%) 1,000 mls @ 120 mls/hr IV .[id number] [facility] Stop: 08/25/17 19:06 Last Admin: 08/24/17 14:00 Dose: Not Given Meropenem 1 gm/ Sodium (Chloride) 100 mls @ 100 mls/hr IVPB Q8@0700,1500,2300 [facility] PRN Reason: Protocol Last Admin: 08/24/17 06:55 Dose: 100 mls/hr Insulin Human Lispro (Humalog) 0 units SC ACHS [facility] PRN Reason: Protocol Last Admin: 08/24/17 11:36 Dose: 4 u Ketorolac Tromethamine (Toradol) 30 mg IVP Q6 PRN PRN Reason: Pain, moderate (4-7) Last Admin: 08/22/17 10:58 Dose: 30 mg Metformin HCl (Glucophage) 1,000 mg PO BIDWM [facility] Last Admin: 08/24/17 08:43 Dose: 1,000 mg Naproxen (Naprosyn Tab) 375 mg PO Q12 [facility] Last Admin: 08/24/17 08:44 Dose: 375 mg Ondansetron HCl (Zofran Inj) 4 mg IVP Q6 PRN PRN Reason: Nausea/Vomiting - Labs Labs: 08/24/17 11:45 08/23/17 13:40
[2017-08-24] MEDS ORDERED: Sodium Chloride 0.45% 1,000 ML IV SCH (16:15)
--- NOTE | 2017-08-24 20:57 | HP ---
HISTORY OF PRESENT ILLNESS: The patient was admitted via the emergency room on 08/20/2017 because of abdominal distention following elective cystoscopy with right ureteroscopy and stone and J stent placement for an obstructing right renal calculus. The patient had been in the surgical center where cystoscopy, retrograde pyelography, and ureteroscopy and insertion of a double-J stent on the right renal unit was performed. During the procedure under direct vision ureteroscopy, there was seemed to be some extravasation at the level of the mid ureter and once that condition was diagnosed then the uteroscope was removed with an existing guidewire that was securely in place. A 6-Mohawk 26 cm double J stent was inserted over that guidewire into the renal unit. Fluoroscopically at that time it was in good position. Postoperatively, the patient began to develop some abdominal discomfort and it proceeded to become abdominal pain. The patient felt some nausea and was quite uncomfortable. He was recommended to go to the emergency room, came to the emergency room. A CT scan was done that evening that showed some level of fluid collections it to be a urinoma in the right retroperitoneal area. In terms of size, it was considered a mild to moderate collection of fluid on that side. What was noted from the CT scan was that the patient had significant urine retention within the bladder and the patient was having significant difficulty voiding, so a Navarrete catheter was inserted to an attempt to relieve the pressure that was created by the postoperative urinary retention as well. Catheter was placed. Initially, the patient received some comfort from that. The patient has a history of non-insulin dependent diabetes. He is on 2 mg b.i.d of Amaryl and 1000 mg b.i.d. of metformin. The patient's initial laboratory reports showed that he had a white count of 11.4. Chemistries were basically normal. He had a urine culture that was drawn at the time of his admission and again his management at this time will be expectant with IV antibiotics, Navarrete catheter drainage, control of his diabetes, and assessment of the urinoma as the case determines. PHYSICAL EXAMINATION: ABDOMEN: In the emergency room, the patient had tympanitic abdomen. He had not had a bowel movement since prior to the surgery on Wednesday. The patient felt mild nausea, but no evidence of need to vomit. On flank percussion, he had no flank pain, no renal colic at this time. The abdomen appeared tympanitic again. It was distended, but not firm. I inserted a Navarrete catheter at the time of his physical examination in the emergency room. EXTREMITIES: Freely mobile. He has no pedal edema. GENITOURINARY: No swelling of the scrotum. Prostate by prior physical examination was 1+ in size. IMPRESSION: Of this patient at this time is urinoma secondary to manipulation of ureter on the right side, right renal calculus, and non-insulin dependent diabetes mellitus. PLAN: For the patient at this time is IV hydration, IV antibiotics, control of glucose and at this time expectant management of the urinoma. Nieves Coates MD
[2017-08-24] MEDS: Insulin Detemir 100 Units/ml Inj SC SCH (21:43)
[2017-08-25] MEDS: Meropenem 1 GM in Sodium Chloride 0.9% 100 ML IVPB SCH ×3 (06:02→22:32)
[2017-08-25 06:40] LABS: HEMATOCRIT 38.5 % (35.0-51.0); MEAN CORPUSCULAR HEMOGLOBIN 29.2 pg (27.0-31.0); MEAN CORPUSCULAR HGB CONC 33.9 g/dL (33.0-37.0); RED CELL DISTRIBUTION WIDTH 12.9 % (11.5-14.5); WHITE BLOOD COUNT 12.2 K/uL (4.8-10.8)
[2017-08-25 06:47] LABS: BLOOD UREA NITROGEN 14 mg/dl (9-20); CARBON DIOXIDE 25 mmol/L (22-30); CHLORIDE 103 mmol/L (98-107); GFR AFRICAN-AMERICAN > 60; GLUCOSE,RANDOM 102 mg/dL (75-110); POTASSIUM 3.8 MMOL/L (3.6-5.0); SODIUM 139 mmol/l (132-148)
[2017-08-25] MEDS: GlipiZIDE 10 mg SR Tab PO SCH (08:51)
[2017-08-25] MEDS: Insulin Lispro (humaLOG) 100 Units/ml Inj SC SCH ×4 (08:51→22:20)
--- NOTE | 2017-08-25 09:24 | CP.PCM.PN ---
Subjective - Date & Time of Evaluation Date of Evaluation: 08/25/17 Time of Evaluation: 08:45 - Subjective Subjective: Pt feels better today abd pain and distention better even leg edema better denies CP no SOB no fever Objective - Vital Signs/Intake and Output Vital Signs (last 24 hours): Temp Pulse Resp BP Pulse Ox 98.2 F 87 20 120/75 95 08/25/17 07:22 08/25/17 07:22 08/25/17 07:22 08/25/17 07:22 08/25/17 07:22 Intake and Output: 08/25/17 08/25/17 06:59 18:59 Intake Total 1300 960 Output Total 1600 1500 Balance -300 -540 - Medications Medications: Current Medications Alprazolam (Xanax) 0.25 mg PO Q12 PRN PRN Reason: Anxiety Stop: 08/31/17 12:55 Last Admin: 08/24/17 13:54 Dose: 0.25 mg Glipizide (Glucotrol Xl) 10 mg PO BRK [facility] Last Admin: 08/25/17 08:51 Dose: 10 mg Meropenem 1 gm/ Sodium (Chloride) 100 mls @ 100 mls/hr IVPB Q8@0700,1500,2300 [facility] PRN Reason: Protocol Last Admin: 08/25/17 06:02 Dose: 100 mls/hr Sodium Chloride (Sodium Chloride 0.45%) 1,000 mls @ 80 mls/hr IV .[id number] [facility] Stop: 08/25/17 16:12 Last Admin: 08/24/17 17:11 Dose: 80 mls/hr Insulin Detemir (Levemir) 10 units SC HS [facility] Last Admin: 08/24/17 21:43 Dose: 10 u Insulin Human Lispro (Humalog) 0 units SC ACHS [facility] PRN Reason: Protocol Last Admin: 08/25/17 08:51 Dose: Not Given Ketorolac Tromethamine (Toradol) 30 mg IVP Q6 PRN PRN Reason: Pain, moderate (4-7) Last Admin: 08/22/17 10:58 Dose: 30 mg Metformin HCl (Glucophage) 1,000 mg PO BIDWM [facility] Last Admin: 08/25/17 08:44 Dose: 1,000 mg Naproxen (Naprosyn Tab) 375 mg PO Q12 [facility] Last Admin: 08/25/17 08:44 Dose: 375 mg Ondansetron HCl (Zofran Inj) 4 mg IVP Q6 PRN PRN Reason: Nausea/Vomiting - Labs Labs: 08/25/17 05:55 08/25/17 05:55 - Constitutional Appears: Non-toxic, No Acute Distress - Head Exam Head Exam: NORMAL INSPECTION, NORMOCEPHALIC - Eye Exam Eye Exam: EOMI, Normal appearance, PERRL Pupil Exam: NORMAL ACCOMODATION, PERRL - ENT Exam ENT Exam: Mucous Membranes Moist, Normal Exam - Neck Exam Neck Exam: Full ROM, Normal Inspection. absent: Lymphadenopathy - Respiratory Exam Respiratory Exam: Clear to Ausculation Bilateral, NORMAL BREATHING PATTERN - Cardiovascular Exam Cardiovascular Exam: REGULAR RHYTHM, +S1, +S2. absent: Murmur - GI/Abdominal Exam GI & Abdominal Exam: Distended, Rigid, Tenderness, Normal Bowel Sounds better than yesterday - Extremities Exam Extremities Exam: Full ROM, Normal Capillary Refill, Normal Inspection. absent : Joint Swelling, Pedal Edema - Back Exam Back Exam: CVA tenderness (R), Full ROM. absent: CVA tenderness (L), paraspinal tenderness - Neurological Exam Neurological Exam: Alert, Awake, CN II-XII Intact, Normal Gait, Oriented x3 Neuro motor strength exam: Left Upper Extremity: 5, Right Upper Extremity: 5, Left Lower Extremity: 5, Right Lower Extremity: 5 - Psychiatric Exam Psychiatric exam: Anxious, Normal Affect, Normal Mood - Skin Skin Exam: Dry, Normal Color, Warm Assessment and Plan (1) Retroperitoneal infection Status: Acute (2) Ureteral stone with hydronephrosis Status: Acute (3) Urinoma Status: Acute (4) Uncontrolled type II diabetes mellitus Status: Chronic - Assessment and Plan (Free Text) Assessment: 57 y/o gent with hx of DM, Ureteral Stone s/p J Stent Placement , came bec of right lower abd , flans pain radiating to the groin: CT of Abd :Interval development of fluid seen dissecting along Gerota's fascia in tracking cephalad to the retroperitoneal space bordered by the duodenum and pancreas. Appearance consistent with urinoma. Correlate clinically. Interval placement of right ureteral stent with distal aspect appearing coiled within the UVJ/distal right ureter. Calculus re-identified within the proximal right ureter. Right renal hypodensity, likely cyst. Indeterminate 15 mm left renal hypodensity. Additional renal hypodensities too small to definitively characterize. Bibasilar atelectasis/infiltrates. Severe hepatic steatosis with suspected focal fatty sparing as described above. Enlarged heterogeneous prostate gland. Recommend correlation with PSA. (1) Retroperitoneal infection Status: Acute likely due to extravasation of urine cont IV Meropenem Urine c/s: negative so far ID consulted - Dr mccray- rec 14-21 days IV abx Urology - Dr Coates following pt Pain mgt Plan for d/c to [facility] for IV abx treatment once cleared by Dr Coates (2) Ureteral stone with hydronephrosis s/p J Stent Placement (3) Urinoma due to Ureteral Perforation Status: Acute post Ureteral stent placement Pain mgt Navarrete catheter placed Urology on case (4) Uncontrolled type II diabetes mellitus Status: Chronic HbgAic =9.1 cont Metformin and Glucotrol Add Levemir 10 units q hs- now better controlled accucheck with coverage DVT proph Hold anticoag sec to hematuria -SCD, early ambulation
--- NOTE | 2017-08-25 09:31 | CP.PCM.PN ---
Subjective - Date & Time of Evaluation Date of Evaluation: 08/25/17 Time of Evaluation: 09:28 - Subjective Subjective: UROLOGY pt afebrile, in no significant pain. Abd much less tender. WBC 12 today diabetic control very good. Will plan to dc iv cont iv antibiotics and update labs in am Objective - Vital Signs/Intake and Output Vital Signs (last 24 hours): Temp Pulse Resp BP Pulse Ox 98.2 F 87 20 120/75 95 08/25/17 07:22 08/25/17 07:22 08/25/17 07:22 08/25/17 07:22 08/25/17 07:22 Intake and Output: 08/25/17 08/25/17 06:59 18:59 Intake Total 1300 960 Output Total 1600 1500 Balance -300 -540 - Medications Medications: Current Medications Alprazolam (Xanax) 0.25 mg PO Q12 PRN PRN Reason: Anxiety Stop: 08/31/17 12:55 Last Admin: 08/24/17 13:54 Dose: 0.25 mg Glipizide (Glucotrol Xl) 10 mg PO BRK [facility] Last Admin: 08/25/17 08:51 Dose: 10 mg Meropenem 1 gm/ Sodium (Chloride) 100 mls @ 100 mls/hr IVPB Q8@0700,1500,2300 [facility] PRN Reason: Protocol Last Admin: 08/25/17 06:02 Dose: 100 mls/hr Sodium Chloride (Sodium Chloride 0.45%) 1,000 mls @ 80 mls/hr IV .[id number] [facility] Stop: 08/25/17 16:12 Last Admin: 08/24/17 17:11 Dose: 80 mls/hr Insulin Detemir (Levemir) 10 units SC HS [facility] Last Admin: 08/24/17 21:43 Dose: 10 u Insulin Human Lispro (Humalog) 0 units SC ACHS [facility] PRN Reason: Protocol Last Admin: 08/25/17 08:51 Dose: Not Given Ketorolac Tromethamine (Toradol) 30 mg IVP Q6 PRN PRN Reason: Pain, moderate (4-7) Last Admin: 08/22/17 10:58 Dose: 30 mg Metformin HCl (Glucophage) 1,000 mg PO BIDWM [facility] Last Admin: 08/25/17 08:44 Dose: 1,000 mg Naproxen (Naprosyn Tab) 375 mg PO Q12 [facility] Last Admin: 08/25/17 08:44 Dose: 375 mg Ondansetron HCl (Zofran Inj) 4 mg IVP Q6 PRN PRN Reason: Nausea/Vomiting - Labs Labs: 08/25/17 05:55 08/25/17 05:55
--- NOTE | 2017-08-25 13:13 | CP.PCM.PN ---
Subjective - Date & Time of Evaluation Date of Evaluation: 08/25/17 Time of Evaluation: 08:00 - Subjective Subjective: afebrile on iv antibiotics s/p ureteral perf at out pt facility- [facility] c/o fullness right flank no fever or chills Objective - Vital Signs/Intake and Output Vital Signs (last 24 hours): Temp Pulse Resp BP Pulse Ox 98.2 F 87 20 120/75 95 08/25/17 09:00 08/25/17 09:00 08/25/17 09:00 08/25/17 09:00 08/25/17 09:00 Intake and Output: 08/25/17 08/25/17 06:59 18:59 Intake Total 1300 1120 Output Total 1600 1501 Balance -300 -381 - Medications Medications: Current Medications Alprazolam (Xanax) 0.25 mg PO Q12 PRN PRN Reason: Anxiety Stop: 08/31/17 12:55 Last Admin: 08/24/17 13:54 Dose: 0.25 mg Glipizide (Glucotrol Xl) 10 mg PO BRK [facility] Last Admin: 08/25/17 08:51 Dose: 10 mg Meropenem 1 gm/ Sodium (Chloride) 100 mls @ 100 mls/hr IVPB Q8@0700,1500,2300 [facility] PRN Reason: Protocol Last Admin: 08/25/17 06:02 Dose: 100 mls/hr Insulin Detemir (Levemir) 10 units SC HS [facility] Last Admin: 08/24/17 21:43 Dose: 10 u Insulin Human Lispro (Humalog) 0 units SC ACHS [facility] PRN Reason: Protocol Last Admin: 08/25/17 12:39 Dose: 4 u Ketorolac Tromethamine (Toradol) 30 mg IVP Q6 PRN PRN Reason: Pain, moderate (4-7) Last Admin: 08/22/17 10:58 Dose: 30 mg Metformin HCl (Glucophage) 1,000 mg PO BIDWM [facility] Last Admin: 08/25/17 08:44 Dose: 1,000 mg Naproxen (Naprosyn Tab) 375 mg PO Q12 [facility] Last Admin: 08/25/17 08:44 Dose: 375 mg Ondansetron HCl (Zofran Inj) 4 mg IVP Q6 PRN PRN Reason: Nausea/Vomiting - Labs Labs: 08/25/17 05:55 08/25/17 05:55 - Constitutional Appears: Non-toxic, Chronically Ill - Head Exam Head Exam: NORMOCEPHALIC - Eye Exam Eye Exam: PERRL - ENT Exam ENT Exam: Mucous Membranes Dry - Neck Exam Neck Exam: absent: Lymphadenopathy - Respiratory Exam Respiratory Exam: Decreased Breath Sounds, Clear to Ausculation Bilateral - Cardiovascular Exam Cardiovascular Exam: REGULAR RHYTHM, +S1, +S2 - GI/Abdominal Exam GI & Abdominal Exam: Distended, Soft, Tenderness Additional comments: + distension/ swelling right flank and right thigh no redness - Exam Exam: Circumcision - Back Exam Back Exam: absent: CVA tenderness (L), CVA tenderness (R) - Neurological Exam Neurological Exam: Alert, Awake, Oriented x3 - Psychiatric Exam Psychiatric exam: Normal Mood - Skin Skin Exam: Dry Assessment and Plan (1) Retroperitoneal infection Status: Acute (2) Urinoma Status: Acute (3) Uncontrolled type II diabetes mellitus Status: Chronic (4) Ureteral calculus, right Status: Acute (5) Ureteral stone with hydronephrosis Status: Acute - Assessment and Plan (Free Text) Assessment: will need repeat imaging by Urology cont carlisle catheter for now IV antibiotics - IV Invanz 1 g daily for 14-21 days
[2017-08-25 19:55] LABS: ABG ALLEN TEST YES; ARTERIAL BLOOD GAS HCO3 26.2 mmol/L (21-28); ARTERIAL BLOOD GAS O2 CAPACITY 19.5 mL/dL (16-24); ARTERIAL BLOOD GAS O2 CONTENT 19.3 ML/dL (15-23); ARTERIAL BLOOD GAS PO2 75 mm/Hg (80-100); ARTERIAL BLOOD HGB O2 SAT 93.2 % (95.0-98.0); CARBOXYHEMOGLOBIN 3.6 % (0.5-1.5); HHB 1.1 % (0.0-5.0); METHEMOGLOBIN 2.2 % (0.0-3.0)
[2017-08-25] MEDS: Insulin Detemir 100 Units/ml Inj SC SCH (22:30)
[2017-08-26] MEDS ORDERED: Sodium Chloride 0.45% 1,000 ML IV SCH
[2017-08-26] MEDS ORDERED: Enoxaparin 80 mg Syringe SC STA (01:13)
--- NOTE | 2017-08-26 01:18 | CP.PCM.PN ---
Subjective - Date & Time of Evaluation Date of Evaluation: 08/26/17 Time of Evaluation: 00:59 - Subjective Subjective: patient seen and examined several times this evening for acute dyspnea and hypoxia. tachycardic. febrile as well. Transferred to . Pt placed on nonrebreather with improvement. Given one dose Full Lovenox. CXR showed elevated R hemidiaphragm and likely effusions/vascular congestion. ABG respiratory alkalosis, + hypoxia. Dimer was elevated, PE vs. hematuria. CT Chest showed bibasilar vasc congestion, pt given lasix with good response. When evaluated again, patient was more calm and stated his dyspnea was worse when lying down but not when walking. Dyspnea resolved, and patient is resting comfortably in bed with family at bedside. Per Dr. Coates, CT ABD PEL IV contrast for tomorrow. May also add CT Chest PE protocol. Objective - Vital Signs/Intake and Output Vital Signs (last 24 hours): Temp Pulse Resp BP Pulse Ox 98.2 F 95 H 16 130/85 97 08/26/17 00:43 08/26/17 00:43 08/26/17 00:43 08/26/17 00:43 08/26/17 00:43 Intake and Output: 08/25/17 08/26/17 18:59 06:59 Intake Total 1120 1300 Output Total 1501 1700 Balance -381 -400 - Medications Medications: Current Medications Acetaminophen (Tylenol 325mg Tab) 650 mg PO Q6 PRN PRN Reason: Fever >100.4 F Last Admin: 08/25/17 18:42 Dose: 650 mg Alprazolam (Xanax) 0.25 mg PO Q12 PRN PRN Reason: Anxiety Stop: 08/31/17 12:55 Last Admin: 08/25/17 16:44 Dose: 0.25 mg Glipizide (Glucotrol Xl) 10 mg PO BRK [facility] Last Admin: 08/25/17 08:51 Dose: 10 mg Meropenem 1 gm/ Sodium (Chloride) 100 mls @ 100 mls/hr IVPB Q8@0700,1500,2300 [facility] PRN Reason: Protocol Last Admin: 08/25/17 22:32 Dose: 100 mls/hr Vancomycin HCl 1 gm/ Sodium (Chloride) 250 mls @ 166.667 mls/hr IVPB Q12 [facility] PRN Reason: Protocol Last Admin: 08/25/17 22:35 Dose: Not Given Sodium Chloride (Sodium Chloride 0.45%) 1,000 mls @ 80 mls/hr IV .[id number] [facility] Stop: 08/26/17 07:30 Last Admin: 08/26/17 00:02 Dose: 80 mls/hr Insulin Detemir (Levemir) 10 units SC HS [facility] Last Admin: 08/25/17 22:30 Dose: 10 u Insulin Human Lispro (Humalog) 0 units SC ACHS [facility] PRN Reason: Protocol Last Admin: 08/25/17 22:20 Dose: Not Given Ketorolac Tromethamine (Toradol) 30 mg IVP Q6 PRN PRN Reason: Pain, moderate (4-7) Last Admin: 08/22/17 10:58 Dose: 30 mg Metformin HCl (Glucophage) 1,000 mg PO BIDWM [facility] Last Admin: 08/25/17 16:44 Dose: 1,000 mg Naproxen (Naprosyn Tab) 375 mg PO Q12 [facility] Last Admin: 08/25/17 20:54 Dose: Not Given Ondansetron HCl (Zofran Inj) 4 mg IVP Q6 PRN PRN Reason: Nausea/Vomiting - Labs Labs: 08/25/17 05:55 08/25/17 05:55
[2017-08-26 06:38] LABS: BASO % 0.2 % (0.0-2.0); EOS # 0.4 K/uL (0.0-0.7); EOS % 2.4 % (0.0-4.0); HEMATOCRIT 40.4 % (35.0-51.0); LYMPH # 0.9 K/uL (1.0-4.3); LYMPH % 4.9 % (20.0-40.0); MEAN CELL VOLUME 84.9 fl (80.0-94.0); MEAN CORPUSCULAR HEMOGLOBIN 29.4 pg (27.0-31.0); MEAN CORPUSCULAR HGB CONC 34.6 g/dL (33.0-37.0); MONO % 11.7 % (0.0-10.0); NEUT # 14.1 K/uL (1.8-7.0); NEUT % 80.8 % (50.0-75.0); PLATELET COUNT 347 K/uL (130-400); WHITE BLOOD COUNT 17.4 K/uL (4.8-10.8)
[2017-08-26] MEDS: Meropenem 1 GM in Sodium Chloride 0.9% 100 ML IVPB SCH ×3 (06:43→23:32)
[2017-08-26] MEDS: Insulin Lispro (humaLOG) 100 Units/ml Inj SC SCH ×4 (06:44→22:08)
[2017-08-26 06:49] LABS: BLOOD UREA NITROGEN 12 mg/dl (9-20); CALCIUM 8.7 mg/dL (8.4-10.2); CARBON DIOXIDE 25 mmol/L (22-30); CHLORIDE 100 mmol/L (98-107); GFR AFRICAN-AMERICAN > 60; GLUCOSE,RANDOM 168 mg/dL (75-110); POTASSIUM 3.8 MMOL/L (3.6-5.0); SODIUM 137 mmol/l (132-148)
--- NOTE | 2017-08-26 08:00 | CP.PCM.PN ---
Subjective - Date & Time of Evaluation Date of Evaluation: 08/26/17 Time of Evaluation: 11:00 - Subjective Subjective: Patient seen and examined bedside.Feeling a little better. Febrile with Tmax 102 last night and some respiratory distress with hypoxemia PO2 75. WBC trending up to 17 K, stable Hgb 13 BP 119/76 HR 108 Objective - Vital Signs/Intake and Output Vital Signs (last 24 hours): Temp Pulse Resp BP Pulse Ox 98.7 F 110 H 18 119/76 99 08/26/17 05:00 08/26/17 05:00 08/26/17 05:00 08/26/17 05:00 08/26/17 05:00 Intake and Output: 08/26/17 08/26/17 06:59 18:59 Intake Total 2230 Output Total 4000 Balance -1770 - Medications Medications: Current Medications Acetaminophen (Tylenol 325mg Tab) 650 mg PO Q6 PRN PRN Reason: Fever >100.4 F Last Admin: 08/25/17 18:42 Dose: 650 mg Alprazolam (Xanax) 0.25 mg PO Q12 PRN PRN Reason: Anxiety Stop: 08/31/17 12:55 Last Admin: 08/25/17 16:44 Dose: 0.25 mg Glipizide (Glucotrol Xl) 10 mg PO BRK [facility] Last Admin: 08/25/17 08:51 Dose: 10 mg Meropenem 1 gm/ Sodium (Chloride) 100 mls @ 100 mls/hr IVPB Q8@0700,1500,2300 [facility] PRN Reason: Protocol Last Admin: 08/26/17 06:43 Dose: 100 mls/hr Vancomycin HCl 1 gm/ Sodium (Chloride) 250 mls @ 166.667 mls/hr IVPB Q12 [facility] PRN Reason: Protocol Last Admin: 08/25/17 22:35 Dose: Not Given Insulin Detemir (Levemir) 10 units SC HS [facility] Last Admin: 08/25/17 22:30 Dose: 10 u Insulin Human Lispro (Humalog) 0 units SC ACHS [facility] PRN Reason: Protocol Last Admin: 08/26/17 06:44 Dose: Not Given Ketorolac Tromethamine (Toradol) 30 mg IVP Q6 PRN PRN Reason: Pain, moderate (4-7) Last Admin: 08/22/17 10:58 Dose: 30 mg Metformin HCl (Glucophage) 1,000 mg PO BIDWM [facility] Last Admin: 08/25/17 16:44 Dose: 1,000 mg Naproxen (Naprosyn Tab) 375 mg PO Q12 [facility] Last Admin: 08/25/17 20:54 Dose: Not Given Ondansetron HCl (Zofran Inj) 4 mg IVP Q6 PRN PRN Reason: Nausea/Vomiting - Labs Labs: 08/26/17 05:15 08/26/17 05:15 - Constitutional Appears: Non-toxic, No Acute Distress - Head Exam Head Exam: ATRAUMATIC, NORMAL INSPECTION, NORMOCEPHALIC - Eye Exam Eye Exam: EOMI, Normal appearance, PERRL Pupil Exam: NORMAL ACCOMODATION - ENT Exam ENT Exam: Mucous Membranes Moist, Normal Exam - Neck Exam Neck Exam: Full ROM, Normal Inspection - Respiratory Exam Respiratory Exam: Decreased Breath Sounds (bibasilar), Clear to Ausculation Bilateral, NORMAL BREATHING PATTERN. absent: Rhonchi, Wheezes - Cardiovascular Exam Cardiovascular Exam: REGULAR RHYTHM, RRR, +S1, +S2. absent: JVD - GI/Abdominal Exam GI & Abdominal Exam: Distended. absent: Guarding, Tenderness, Rebound Additional comments: right lower quadrant lateral aspect fullness with palpation - Rectal Exam Rectal Exam: Deferred - Extremities Exam Extremities Exam: Full ROM, Normal Capillary Refill, Normal Inspection. absent : Calf Tenderness, Pedal Edema - Back Exam Back Exam: NORMAL INSPECTION - Neurological Exam Neurological Exam: Alert, Awake, CN II-XII Intact, Oriented x3 - Psychiatric Exam Psychiatric exam: Normal Affect, Normal Mood - Skin Skin Exam: Dry, Intact, Normal Color, Warm Assessment and Plan - Assessment and Plan (Free Text) Assessment: 57 year old male with PMH for Type 2 diabetes mellitus, hypercholesterolemia, nephrolithiasis and bladder calculi with cystoscopy 06/28/[address] Coates that showed ureteral stricture and multiple bladder calculi which were evacuated, presented again with severe abdominal pain on 08/16/[address] abdomen showed right ureter 6 mm stone. Urology was consulted and he underwent stent placement that resulted on perforation of right ureter and urinoma collection in abdomen.CT scan showed evidence of perforated ureter. Patient currently spiking fevers with Tmax 102 last 24 hours and WBC trending up to 17 K Abdominal exam showing increased fullness to right lower quadrant. Ct abdomen showed possible abscess formation to RLQ 8 cm in diameter At present on meropenem and vanco IV 1. Retroperitoneal infection with abscess formation to RLQ Acute likely due to extravasation of urine repeat CT abdomen and pelvis today showed abscess formation to RLQ 8.2 cm in diameter will consult IR for drainage patient febrile with Tmax 102 , WBc trendding up 17 K ID on consult continue Meropenem and Vanco Urology - Dr Coates following pt 2. Acute respiratory distress with hypoxemia overnight Most likely secondary to fluid overload and vascular congestion responded well to IV lasix and NRM CTA chest showed no PE , bibasilar atelectasis Promote ambulation , incentive spirometry 3. Ureteral stone with hydronephrosis s/p J Stent Placement 4. Urinoma due to Ureteral Perforation Acute post Ureteral stent placement Ct abdomen today showed stable to slightly improved urinoma Navarrete catheter in place Urology following 5. Uncontrolled type II diabetes mellitus uncontrolled HbgA1c =9.1 cont Metformin and started glucotrol 10 mg po BK instead of Amaryl Added Levemir 10 units q hs accucheck with coverage 6.DVT proph Hold anticoag sec to hematuria SCD, early ambulation
--- NOTE | 2017-08-26 08:10 | CT ---
PROCEDURE: CT Chest without contrast HISTORY: dyspnea, hypoxia COMPARISON: 08/21/2017 CT abdomen and pelvis including the lung bases. TECHNIQUE: Contiguous axial images were obtained through the chest without intravenous contrast enhancement. Sagittal and coronal reconstructions were performed. Radiation dose (DLP): 541.38 mGy-cm. This CT exam was performed using one or more of the following dose reduction techniques: Automated exposure control, adjustment of the mA and/or kV according to patient size, and/or use of iterative reconstruction technique. FINDINGS: LUNGS: Progressive consolidative changes at the lung bases primarily lower lobes, also affecting the lingula. MEDIASTINUM: Unremarkable thoracic aorta. No aneurysm. Normal sized heart. Main pulmonary artery unremarkable. No vascular congestion. No lymphadenopathy. PLEURA: No pleural fluid. No pneumothorax. BONES: No fracture. No destructive lesion. UPPER ABDOMEN: Hepatic steatosis and relative sparing affecting the left hepatic lobe. OTHER FINDINGS: None. IMPRESSION: Progressive consolidative changes at the lung bases compared to the prior CT comparing similar areas included in that study. Additional benign and/or incidental findings described above. Concordant results (preliminary interpretation) provided by [facility]. Procedure Completed: 21:56 Preliminary ([facility]) Report: Dictated and Authenticated: 22:35 Final Interpretation: 08:08. August 26, 2017.
[2017-08-26] MEDS: GlipiZIDE 10 mg SR Tab PO SCH (08:46)
[2017-08-26] MEDS ORDERED: Enoxaparin 40 mg Syringe SC SCH (09:00)
[2017-08-26] MEDS ORDERED: Iodixanol 320 MG/ML 100 ML BOTTLE IV ONE (09:30)
[2017-08-26] MEDS ORDERED: Sodium Chloride 0.9% 50 ML IV ONE (09:30)
--- NOTE | 2017-08-26 09:39 | RAD ---
PROCEDURE: Chest x-ray HISTORY: ACUTE DYSPNEA COMPARISON: 12/12/2012 single-view chest. August 26, 2017. CT thorax TECHNIQUE: Standard protocol for this study/examination. This includes an apical view. FINDINGS: Atelectatic changes at the lung bases, elevated hemidiaphragms, poor inspiratory effort. IMPRESSION: Lower lobe infiltrates/atelectasis.
[2017-08-26 11:09] LABS: EOSINOPHIL 3 % (0-7); NEUTROPHIL 79 % (42-75); TOTAL CELLS COUNTED 100
--- NOTE | 2017-08-26 11:47 | CT ---
PROCEDURE: CT Chest with contrast (Pulmonary Angiogram) HISTORY: EVAL FOR PE COMPARISON: Chest CT without contrast 08/25/2017. TECHNIQUE: Axial computed tomography images were obtained of the chest in the pulmonary arterial phase of enhancement. Coronal and sagittal reformatted images were created and reviewed. Intravenous contrast dose: Visipaque 320, 100 cc Radiation dose: Total exam DLP = 996.87 mGy-cm. (this is the total dose for chest, abdomen and pelvis CT exam performed during the same CT visit). This CT exam was performed using one or more of the following dose reduction techniques: Automated exposure control, adjustment of the mA and/or kV according to patient size, and/or use of iterative reconstruction technique. FINDINGS: PULMONARY ARTERIES: Unremarkable. No pulmonary embolism. AORTA: No acute findings. No thoracic aortic aneurysm. LUNGS: Minimal linear atelectasis or fibrosis in the bilateral pulmonary apices once again with dependent atelectasis favored over infiltrates bilateral lower lobe bases PLEURAL SPACES: Unremarkable. No effusion or pneumothorax. HEART: Unremarkable. No cardiomegaly. No significant pericardial effusion. LYMPH NODES: No lymphadenopathy. BONES, CHEST WALL: Unremarkable. No fracture or destructive lesion OTHER FINDINGS: Up better findings are included in separate abdomen pelvis CT also performed 08/26/2017. IMPRESSION: 1. No CT evidence to suggest pulmonary embolus at this time. 2. Bilateral lower lobe basilar dependent atelectasis is identified moderately. Underlying infiltrate is not completely excluded. 3. No significant lymphadenopathy.
--- NOTE | 2017-08-26 12:44 | CT ---
PROCEDURE: CT Abdomen and Pelvis with contrast HISTORY: retroperitoneal infection r/o abscess COMPARISON: None. TECHNIQUE: Contrast dose: Visipaque 320, 100 cc (total volume for both chest, abdomen and pelvis CT examinations) Radiation dose: Total exam DLP = 996.87 mGy-cm. (total dose for chest, abdomen and pelvis CT examinations done at the same time and subsequently divided and sent separately to PACs). This CT exam was performed using one or more of the following dose reduction techniques: Automated exposure control, adjustment of the mA and/or kV according to patient size, and/or use of iterative reconstruction technique. FINDINGS: LOWER THORAX: Bilateral basilar dependent airspace disease likely reflecting atelectasis. Please see separate chest CT report also performed 08/26/2017. LIVER: Prominent diffuse fatty infiltration liver is again appreciated with likely focal fatty sparing identified at the posteromedial left lobe. GALLBLADDER AND BILE DUCTS: Partial contraction of the gallbladder is appreciated. PANCREAS: Unremarkable. No gross lesion or ductal dilatation. SPLEEN: Unremarkable. ADRENALS: Unremarkable. No mass. KIDNEYS AND URETERS: Right-sided double-J ureteral stent remains in position with none identified at the left once again. Right renal collecting system remains decompressed with limited emphysema identified at several calices in the lateral portion of the right renal pelvis. The prior small calculus abutting the proximal segment of the right ureteral stent is not identified currently throughout its entire course though there is some motion artifact in the exam limiting the evaluation. Stable 3.8 cm right renal cyst is seen at the lower pole with a 15 mm lucency at the posterior upper midpole remaining indeterminate, measuring 31 Hounsfield units. Additional tiny lucencies on changes at the midpole right kidney laterally, too small to characterize. VASCULATURE: Unremarkable. No aortic aneurysm. BOWEL: Unremarkable. No obstruction. No gross mural thickening. APPENDIX: The appendix appears distended, increased in size compared to the prior CT. It also overlies an apparent abscess within the prior intraperitoneal and limited retroperitoneal space at may be sympathetically inflamed. PERITONEUM: The prior intraperitoneal and retroperitoneal fluid collection in the right fausto abdomen/right lower quadrant and upper right pelvis has not increased however interval, extensive emphysematous changes are related in the largest portion of the collection at the right lower quadrant measuring 8.4 x 7.2 cm indicative of a developing abscess. Linear enhancement seen in the inferior margins of the fluid collection in the right hemipelvis as well, also suggesting abscess. LYMPH NODES: Unremarkable. No enlarged lymph nodes. BLADDER: Urinary bladder is seen decompressed by Navarrete catheter in the interval. REPRODUCTIVE: Unremarkable. BONES: No acute fracture. OTHER FINDINGS: None. IMPRESSION: 1. Although right-sided intraperitoneal/retroperitoneal fluid collection does not appear significantly increased and may defect diminished somewhat in overall volume, an abscess type pattern is now appreciated at the central portion of the measuring 8.2 cm greatest dimension as discussed above. This should be accessible by imaging guided drainage procedure if elected. Further clinical correlation is advised. Right-sided double-J ureteral stent unchanged in position decompressing right renal collecting system. Navarrete catheter decompresses the urinary bladder in the interval. 2. Marked diffuse fatty infiltration of liver is again appreciated with likely focal fatty sparing of the left lobe liver. 3. Right renal cyst again identified with additional smaller lucencies unchanged in appearance. Findings reviewed and discussed with Dr. Coates at radiology 08/26/2017, 12:15 p.m..
--- NOTE | 2017-08-26 12:57 | CP.PCM.PN ---
Subjective - Date & Time of Evaluation Date of Evaluation: 08/26/17 Time of Evaluation: 12:55 - Subjective Subjective: UROLOGY ct chest and abd seen the urinoma is improving however in right lower quadrant there is a residual collection which could represant abscess. Will arrange with IR to drain this abscess Objective - Vital Signs/Intake and Output Vital Signs (last 24 hours): Temp Pulse Resp BP Pulse Ox 98.3 F 91 H 18 119/76 97 08/26/17 08:00 08/26/17 08:00 08/26/17 08:00 08/26/17 08:00 08/26/17 08:00 Intake and Output: 08/26/17 08/26/17 06:59 18:59 Intake Total 2230 Output Total 4000 Balance -1770 - Medications Medications: Current Medications Acetaminophen (Tylenol 325mg Tab) 650 mg PO Q6 PRN PRN Reason: Fever >100.4 F Last Admin: 08/25/17 18:42 Dose: 650 mg Alprazolam (Xanax) 0.25 mg PO Q12 PRN PRN Reason: Anxiety Stop: 08/31/17 12:55 Last Admin: 08/25/17 16:44 Dose: 0.25 mg Glipizide (Glucotrol Xl) 10 mg PO BRK RAQUEL Last Admin: 08/26/17 08:46 Dose: Not Given Meropenem 1 gm/ Sodium (Chloride) 100 mls @ 100 mls/hr IVPB Q8@0700,1500,2300 RAQUEL PRN Reason: Protocol Last Admin: 08/26/17 06:43 Dose: 100 mls/hr Vancomycin HCl 1 gm/ Sodium (Chloride) 250 mls @ 166.667 mls/hr IVPB Q12 RAQUEL PRN Reason: Protocol Last Admin: 08/26/17 08:39 Dose: 166.667 mls/hr Insulin Detemir (Levemir) 10 units SC HS RAQUEL Last Admin: 08/25/17 22:30 Dose: 10 u Insulin Human Lispro (Humalog) 0 units SC ACHS RAQUEL PRN Reason: Protocol Last Admin: 08/26/17 06:44 Dose: Not Given Ketorolac Tromethamine (Toradol) 30 mg IVP Q6 PRN PRN Reason: Pain, moderate (4-7) Last Admin: 08/22/17 10:58 Dose: 30 mg Metformin HCl (Glucophage) 1,000 mg PO BIDWM [facility] Last Admin: 08/26/17 08:46 Dose: Not Given Naproxen (Naprosyn Tab) 375 mg PO Q12 [facility] Last Admin: 08/25/17 20:54 Dose: Not Given Ondansetron HCl (Zofran Inj) 4 mg IVP Q6 PRN PRN Reason: Nausea/Vomiting - Labs Labs: 08/26/17 05:15 08/26/17 05:15
[2017-08-26] MEDS: Insulin Detemir 100 Units/ml Inj SC SCH (22:08)
[2017-08-27 05:28] LABS: HEMATOCRIT 38.4 % (35.0-51.0); MEAN CELL VOLUME 86.1 fl (80.0-94.0); MEAN CORPUSCULAR HEMOGLOBIN 28.7 pg (27.0-31.0); MEAN CORPUSCULAR HGB CONC 33.3 g/dL (33.0-37.0); RED CELL DISTRIBUTION WIDTH 13.3 % (11.5-14.5); WHITE BLOOD COUNT 14.1 K/uL (4.8-10.8)
[2017-08-27 05:40] LABS: ALKALINE PHOSPHATASE 126 U/L (38-126); ALT/SGPT 38 U/L (21-72); AST/SGOT 26 U/L (17-59); BILIRUBIN,TOTAL 0.4 mg/dl (0.2-1.3); BLOOD UREA NITROGEN 15 mg/dl (9-20); CALCIUM 8.7 mg/dL (8.4-10.2); CARBON DIOXIDE 30 mmol/L (22-30); CHLORIDE 102 mmol/L (98-107); GFR AFRICAN-AMERICAN > 60; GLUCOSE,RANDOM 114 mg/dL (75-110); SODIUM 142 mmol/l (132-148); TOTAL PROTEIN 6.3 G/DL (6.3-8.2)
[2017-08-27] MEDS: Insulin Lispro (humaLOG) 100 Units/ml Inj SC SCH ×4 (06:45→22:20)
[2017-08-27] MEDS: GlipiZIDE 10 mg SR Tab PO SCH (08:26)
[2017-08-27] MEDS: Meropenem 1 GM in Sodium Chloride 0.9% 100 ML IVPB SCH ×3 (08:27→23:17)
[2017-08-27] MEDS ORDERED: Lidocaine 1% Inj (20ml) ONE ×2 (13:11→13:48)
[2017-08-27] MEDS ORDERED: Sodium Chloride 0.9% 100 ML ONE (13:28)
--- NOTE | 2017-08-27 13:31 | CP.PCM.PN ---
Subjective - Date & Time of Evaluation Date of Evaluation: 08/27/17 Time of Evaluation: 07:00 - Subjective Subjective: for possible IR drainage- large retroperitioneal abscess all cultures thus far neg Objective - Vital Signs/Intake and Output Vital Signs (last 24 hours): Temp Pulse Resp BP Pulse Ox 99.4 F 96 H 18 148/76 98 08/27/17 13:21 08/27/17 13:21 08/27/17 13:21 08/27/17 13:21 08/27/17 13:21 Intake and Output: 08/27/17 08/27/17 06:59 18:59 Intake Total 850 Output Total 1000 Balance -150 - Medications Medications: Current Medications Acetaminophen (Tylenol 325mg Tab) 650 mg PO Q6 PRN PRN Reason: Fever >100.4 F Last Admin: 08/25/17 18:42 Dose: 650 mg Alprazolam (Xanax) 0.25 mg PO Q12 PRN PRN Reason: Anxiety Stop: 08/31/17 12:55 Last Admin: 08/25/17 16:44 Dose: 0.25 mg Glipizide (Glucotrol Xl) 10 mg PO BRK RAQUEL Last Admin: 08/27/17 08:26 Dose: Not Given Meropenem 1 gm/ Sodium (Chloride) 100 mls @ 100 mls/hr IVPB Q8@0700,1500,2300 RAQUEL PRN Reason: Protocol Last Admin: 08/27/17 08:27 Dose: 100 mls/hr Vancomycin HCl 1 gm/ Sodium (Chloride) 250 mls @ 166.667 mls/hr IVPB Q12 RAQUEL PRN Reason: Protocol Last Admin: 08/27/17 08:27 Dose: 166.667 mls/hr Insulin Detemir (Levemir) 10 units SC HS RAQUEL Last Admin: 08/26/17 22:08 Dose: 10 u Insulin Human Lispro (Humalog) 0 units SC ACHS RAQUEL PRN Reason: Protocol Last Admin: 08/27/17 12:44 Dose: Not Given Ketorolac Tromethamine (Toradol) 30 mg IVP Q6 PRN PRN Reason: Pain, moderate (4-7) Last Admin: 08/22/17 10:58 Dose: 30 mg Naproxen (Naprosyn Tab) 375 mg PO Q12 [facility] Last Admin: 08/27/17 08:26 Dose: Not Given Ondansetron HCl (Zofran Inj) 4 mg IVP Q6 PRN PRN Reason: Nausea/Vomiting - Labs Labs: 08/27/17 04:40 08/27/17 04:40 PT 14.0 Seconds (9.8-13.1) H 08/27/17 04:40 INR 1.2 (0.9-1.2) 08/27/17 04:40 - Constitutional Appears: Non-toxic, Chronically Ill - Head Exam Head Exam: NORMOCEPHALIC - Eye Exam Eye Exam: absent: Scleral icterus - ENT Exam ENT Exam: Mucous Membranes Dry - Neck Exam Neck Exam: absent: Lymphadenopathy - Respiratory Exam Respiratory Exam: Decreased Breath Sounds - Cardiovascular Exam Cardiovascular Exam: REGULAR RHYTHM - GI/Abdominal Exam GI & Abdominal Exam: Distended Assessment and Plan (1) Retroperitoneal infection Status: Acute (2) Urinoma Status: Acute (3) Uncontrolled type II diabetes mellitus Status: Chronic (4) Ureteral calculus, right Status: Acute (5) Ureteral stone with hydronephrosis Status: Acute
--- NOTE | 2017-08-27 14:21 | PCM.SURG1 ---
Surgeon's Initial Post Op Note - Surgeon's Notes Surgeon: Damion Cohn MD Shanker Out: NONE Type of Anesthesia: Local Pre-Operative Diagnosis: Abdominal abscess Operative Findings: COmplex right lower abdominal collection Post-Operative Diagnosis: Abdominal abscess Operation Performed: CT guided placement of a 10 fr drainage catheter. Specimen/Specimens Removed: 20 cc of purulent drainage Estimated Blood Loss: EBL {In ML}: 0 Blood Products Given: N/A Drains Used: No Drains Post-Op Condition: Fair Date of Surgery/Procedure: 08/27/17 Time of Surgery/Procedure: 14:00
--- NOTE | 2017-08-27 14:23 | PCM.SURG1 ---
Surgeon's Initial Post Op Note - Surgeon's Notes Surgeon: ALOK Castaneda Artist Scientific: NONE Type of Anesthesia: Local Pre-Operative Diagnosis: Abdominal absecss Operative Findings: Patent right basilic vein. Post-Operative Diagnosis: Abdominal abscess Operation Performed: Single lumen picc placement right basilic vein, 37 cm. Tip is in the SVC. Specimen/Specimens Removed: None Estimated Blood Loss: EBL {In ML}: 2 Blood Products Given: N/A Drains Used: No Drains Post-Op Condition: Fair Date of Surgery/Procedure: 08/27/17 Time of Surgery/Procedure: 14:20
--- NOTE | 2017-08-27 14:50 | VASCULAR ---
PROCEDURE: Date of procedure: Procedure: 1. Placement of a right arm PICC with ultrasound and fluoroscopic guidance, CPT 84155 2. PICC tip confirmation with spot radiograph and is in the superior vena cava Medications: 1 percent lidocaine Total Fluoro time: 10.2 seconds Radiation: 1.16 MGy EBL: 2 cc HISTORY: Infection requiring long-term IV antibiotics TECHNIQUE: Following informed consent and procedure time-out, the patient was placed supine on the interventional table and the right arm prepped and draped in the usual sterile fashion. Ultrasound showed a patent and compressible right basilic vein. After the skin was anesthetized with lidocaine, the basilic vein was accessed with micro micropuncture technique using ultrasound guidance. A guidewire was then advanced under fluoroscopic guidance into the superior vena cava. An image documenting ultrasound guidance for vascular access was permanently saved. The length of the single-lumen 4 [place] PICC was trimmed to 37 centimeters and advanced through a peel-away sheath. The PICC was position with tip of PICC confirm a spot radiograph the superior vena cava. The PICC was secured to the patient's skin. The PICC was flushed. A biopatch and sterile dressing was applied. IMPRESSION: Placement of a single-lumen 4 [place] PICC trimmed to 37 centimeters via right basilic vein. The tip of the PICC is confirmed with spot radiograph and is in the superior vena cava.
--- NOTE | 2017-08-27 14:51 | CT ---
PROCEDURE: Date of procedure: 08/27/2017 Procedure: 1. Right abdominal abscess drainage with CT guidance, CPT 55520 Medications: Lidocaine 1 percent 10 cubic centimeters HISTORY: Complex right abdominal collection. TECHNIQUE: Following informed consent procedure time-out, patient is placed prone on the CT table and non contrast CT was performed which showed a large complex right abdominal collection. The skin localizer was placed on the patient's right lower abdomen and a repeat CT scan performed. The skin was marked, prepped, and draped in the usual sterile fashion. Under CT guidance, a Guidesly drainage catheter was advanced into the collection. Upon return of purulent drainage, the catheter exchanged over an 035 guidewire and the tract was dilated to accommodate a 10 Barbadian pigtail drainage catheter formed within the collection. The position of the 10 Fr drainage catheter was confirmed with repeat CT scan. Twenty cubic centimeters of purulent drainage was removed and sent for culture and sensitivity. The catheter was secured the patient's skin. A dressing was applied. IMPRESSION: CT-guided abscess drainage within the placement of a 10 Barb[place] drainage catheter with abscess. The fluid specimen was sent for culture and sensitivity.
--- NOTE | 2017-08-27 16:46 | CP.PCM.PN ---
Subjective - Date & Time of Evaluation Date of Evaluation: 08/27/17 Time of Evaluation: 09:00 - Subjective Subjective: Patient was seen and examined bedside. Feeling a little better. Hemodynamically stable, afebrile last 24 hours. Denies any abdominal pain. No acute issues overnight WBC trended down to 14 k Objective - Vital Signs/Intake and Output Vital Signs (last 24 hours): Temp Pulse Resp BP Pulse Ox 98.9 F 101 H 16 127/80 92 L 08/27/17 15:56 08/27/17 15:56 08/27/17 15:56 08/27/17 15:56 08/27/17 15:56 Intake and Output: 08/27/17 08/27/17 06:59 18:59 Intake Total 850 Output Total 1000 Balance -150 - Medications Medications: Current Medications Acetaminophen (Tylenol 325mg Tab) 650 mg PO Q6 PRN PRN Reason: Fever >100.4 F Last Admin: 08/25/17 18:42 Dose: 650 mg Alprazolam (Xanax) 0.25 mg PO Q12 PRN PRN Reason: Anxiety Stop: 08/31/17 12:55 Last Admin: 08/25/17 16:44 Dose: 0.25 mg Glipizide (Glucotrol Xl) 10 mg PO BRK RAQUEL Last Admin: 08/27/17 08:26 Dose: Not Given Meropenem 1 gm/ Sodium (Chloride) 100 mls @ 100 mls/hr IVPB Q8@0700,1500,2300 RAQUEL PRN Reason: Protocol Last Admin: 08/27/17 15:37 Dose: 100 mls/hr Vancomycin HCl 1 gm/ Sodium (Chloride) 250 mls @ 166.667 mls/hr IVPB Q12 RAQUEL PRN Reason: Protocol Last Admin: 08/27/17 08:27 Dose: 166.667 mls/hr Insulin Detemir (Levemir) 10 units SC HS RAQUEL Last Admin: 08/26/17 22:08 Dose: 10 u Insulin Human Lispro (Humalog) 0 units SC ACHS RAQUEL PRN Reason: Protocol Last Admin: 08/27/17 12:44 Dose: Not Given Ketorolac Tromethamine (Toradol) 30 mg IVP Q6 PRN PRN Reason: Pain, moderate (4-7) Last Admin: 08/22/17 10:58 Dose: 30 mg Naproxen (Naprosyn Tab) 375 mg PO Q12 RAQUEL Last Admin: 08/27/17 08:26 Dose: Not Given Ondansetron HCl (Zofran Inj) 4 mg IVP Q6 PRN PRN Reason: Nausea/Vomiting - Labs Labs: 08/27/17 04:40 08/27/17 04:40 PT 14.0 Seconds (9.8-13.1) H 08/27/17 04:40 INR 1.2 (0.9-1.2) 08/27/17 04:40 - Constitutional Appears: Non-toxic, No Acute Distress - Head Exam Head Exam: ATRAUMATIC, NORMAL INSPECTION - Eye Exam Eye Exam: EOMI, Normal appearance, PERRL Pupil Exam: NORMAL ACCOMODATION - ENT Exam ENT Exam: Mucous Membranes Moist, Normal Exam - Neck Exam Neck Exam: Full ROM, Normal Inspection - Respiratory Exam Respiratory Exam: Clear to Ausculation Bilateral, NORMAL BREATHING PATTERN. absent: Rales, Rhonchi, Wheezes - Cardiovascular Exam Cardiovascular Exam: REGULAR RHYTHM, RRR, +S1, +S2. absent: JVD - GI/Abdominal Exam GI & Abdominal Exam: Soft, Normal Bowel Sounds. absent: Distended, Guarding, Rebound Additional comments: right quadrant fullness and tenderness on palpation - Rectal Exam Rectal Exam: Deferred - Extremities Exam Extremities Exam: Full ROM, Normal Capillary Refill, Normal Inspection. absent : Calf Tenderness, Pedal Edema - Back Exam Back Exam: NORMAL INSPECTION - Neurological Exam Neurological Exam: Alert, Awake, CN II-XII Intact, Oriented x3 - Psychiatric Exam Psychiatric exam: Normal Affect, Normal Mood - Skin Skin Exam: Dry, Intact, Normal Color, Warm Assessment and Plan - Assessment and Plan (Free Text) Assessment: 57 year old male with PMH for Type 2 diabetes mellitus, hypercholesterolemia, nephrolithiasis and bladder calculi with cystoscopy 06/28/[address] Coates that showed ureteral stricture and multiple bladder calculi which were evacuated, presented again with severe abdominal pain on 08/16/[address] abdomen showed right ureter 6 mm stone. Urology was consulted and he underwent stent placement that resulted on perforation of right ureter and urinoma collection in abdomen.CT scan showed evidence of perforated ureter. Patient was started initially on rocephin IV by urology.ID and medicine were consulted to help manage the case. antibiotics were changed to Meropenem IV due to increase in WBC count and Vancomycin was added since patient started spiking fevers and having a trend up on WBC count. Repeat Ct abdomen showed possible abscess formation to RLQ 8 cm in diameter At present on meropenem and vanco IV. IR consulted and patient underwent Right lower quadrant abscess drainage with catheter placement . 1. Retroperitoneal infection with abscess formation to RLQ Acute likely due to extravasation of urine repeat CT abdomen and pelvis showed abscess formation to RLQ 8.2 cm in diameter IR consulted and patient underwent drainage of abscess with catheter placement . Cultures sent patient clinically improving afebrile last 24 houirs and WBC trending down from 17 k -- 14 K ID on consult Dr. Freeman, case discussed continue Meropenem and Vanco for at least 21 days PICC line inserted today Follow up culture results from abdominal abscess Patient has been accepted to [facility] for continuation of IV antibiotics Possible d/c if remains stable 2. Acute respiratory distress with hypoxemia-resolved Most likely secondary to fluid overload and vascular congestion responded well to IV lasix and NRM CTA chest showed no PE , bibasilar atelectasis Promote ambulation , incentive spirometry 3. Ureteral stone with hydronephrosis s/p J Stent Placement 4. Urinoma due to Ureteral Perforation Acute post Ureteral stent placement repeat Ct abdomen showed stable to slightly improved urinoma Will d/c Navarrete catheter today anjfd monitor Urology following , Dr. Coates 5. Uncontrolled type II diabetes mellitus uncontrolled HbgA1c =9.1 Metformin on hold for 48 hours ,since patient received contrast for Ct abdomen ( march restart 08/28) continue glucotrol 10 mg po BK instead of Amaryl Added Levemir 10 units q hs accucheck with coverage 6.DVT proph Hold anticoag sec to hematuria and I&D SCD, early ambulation
[2017-08-27] MEDS: Insulin Detemir 100 Units/ml Inj SC SCH (22:19)
[2017-08-28 07:24] LABS: HEMATOCRIT 36.2 % (35.0-51.0); MEAN CELL VOLUME 84.9 fl (80.0-94.0); MEAN CORPUSCULAR HEMOGLOBIN 29.1 pg (27.0-31.0); MEAN CORPUSCULAR HGB CONC 34.3 g/dL (33.0-37.0); RED CELL DISTRIBUTION WIDTH 12.9 % (11.5-14.5); WHITE BLOOD COUNT 8.2 K/uL (4.8-10.8)
[2017-08-28 07:40] LABS: BLOOD UREA NITROGEN 16 mg/dl (9-20); CALCIUM 8.5 mg/dL (8.4-10.2); CARBON DIOXIDE 30 mmol/L (22-30); CHLORIDE 100 mmol/L (98-107); GFR AFRICAN-AMERICAN > 60; GLUCOSE,RANDOM 165 mg/dL (75-110); SODIUM 140 mmol/l (132-148)
[2017-08-28] MEDS: Meropenem 1 GM in Sodium Chloride 0.9% 100 ML IVPB SCH ×3 (08:28→23:39)
[2017-08-28] MEDS: GlipiZIDE 10 mg SR Tab PO SCH (08:39)
[2017-08-28] MEDS: Insulin Lispro (humaLOG) 100 Units/ml Inj SC SCH ×4 (08:41→21:32)
--- NOTE | 2017-08-28 10:12 | CP.PCM.PN ---
Subjective - Date & Time of Evaluation Date of Evaluation: 08/28/17 Time of Evaluation: 09:30 - Subjective Subjective: No fevr abd pain very much better voiding freely seropurulent discharge from right abd drainage catheter no SOB no CP Objective - Vital Signs/Intake and Output Vital Signs (last 24 hours): Temp Pulse Resp BP Pulse Ox 98.3 F 81 18 126/84 95 08/28/17 08:13 08/28/17 08:13 08/28/17 08:13 08/28/17 08:13 08/28/17 08:13 Intake and Output: 08/28/17 08/28/17 06:59 18:59 Intake Total 506 Output Total 250 Balance 256 - Medications Medications: Current Medications Acetaminophen (Tylenol 325mg Tab) 650 mg PO Q6 PRN PRN Reason: Fever >100.4 F Last Admin: 08/25/17 18:42 Dose: 650 mg Alprazolam (Xanax) 0.25 mg PO Q12 PRN PRN Reason: Anxiety Stop: 08/31/17 12:55 Last Admin: 08/27/17 23:17 Dose: 0.25 mg Glipizide (Glucotrol Xl) 10 mg PO BRK [facility] Last Admin: 08/28/17 08:39 Dose: 10 mg Meropenem 1 gm/ Sodium (Chloride) 100 mls @ 100 mls/hr IVPB Q8@0700,1500,2300 [facility] PRN Reason: Protocol Last Admin: 08/28/17 08:28 Dose: 100 mls/hr Vancomycin HCl 1 gm/ Sodium (Chloride) 250 mls @ 166.667 mls/hr IVPB Q12 [facility] PRN Reason: Protocol Last Admin: 08/28/17 08:29 Dose: 166.667 mls/hr Insulin Detemir (Levemir) 10 units SC HS [facility] Last Admin: 08/27/17 22:19 Dose: 10 u Insulin Human Lispro (Humalog) 0 units SC ACHS [facility] PRN Reason: Protocol Last Admin: 08/28/17 08:41 Dose: 1 unit Ketorolac Tromethamine (Toradol) 30 mg IVP Q6 PRN PRN Reason: Pain, moderate (4-7) Last Admin: 08/27/17 18:48 Dose: 30 mg Naproxen (Naprosyn Tab) 375 mg PO Q12 [facility] Last Admin: 08/28/17 08:39 Dose: 375 mg Ondansetron HCl (Zofran Inj) 4 mg IVP Q6 PRN PRN Reason: Nausea/Vomiting - Labs Labs: 08/28/17 06:00 08/28/17 06:00 PT 14.0 Seconds (9.8-13.1) H 08/27/17 04:40 INR 1.2 (0.9-1.2) 08/27/17 04:40 - Constitutional Appears: Non-toxic, No Acute Distress - Head Exam Head Exam: NORMAL INSPECTION, NORMOCEPHALIC - Eye Exam Eye Exam: EOMI, Normal appearance, PERRL Pupil Exam: NORMAL ACCOMMODATION, PERRL - ENT Exam ENT Exam: Mucous Membranes Moist, Normal Exam - Neck Exam Neck Exam: Full ROM, Normal Inspection. absent: Lymphadenopathy - Respiratory Exam Respiratory Exam: Clear to Ausculation Bilateral, NORMAL BREATHING PATTERN - Cardiovascular Exam Cardiovascular Exam: REGULAR RHYTHM, +S1, +S2. absent: Murmur - GI/Abdominal Exam GI & Abdominal Exam: Distended, minimal Tenderness, Normal Bowel Sounds Right drainage catheter with sero purulent discharge - Extremities Exam Extremities Exam: Full ROM, Normal Capillary Refill, Normal Inspection. absent : Joint Swelling, Pedal Edema - Back Exam Back Exam: CVA tenderness (R), Full ROM. absent: CVA tenderness (L), paraspinal tenderness - Neurological Exam Neurological Exam: Alert, Awake, CN II-XII Intact, Normal Gait, Oriented x3 Neuro motor strength exam: Left Upper Extremity: 5, Right Upper Extremity: 5, Left Lower Extremity: 5, Right Lower Extremity: 5 - Psychiatric Exam Psychiatric exam: Anxious, Normal Affect, Normal Mood - Skin Skin Exam: Dry, Normal Color, Warm Assessment and Plan (1) Retroperitoneal infection Status: Acute (2) Ureteral stone with hydronephrosis Status: Acute (3) Urinoma Status: Acute (4) Uncontrolled type II diabetes mellitus Status: Chronic - Assessment and Plan (Free Text) Assessment: 57 year old male with PMH for Type 2 diabetes mellitus, hypercholesterolemia, nephrolithiasis and bladder calculi with cystoscopy 06/28/[address] Coates that showed ureteral stricture and multiple bladder calculi which were evacuated, presented again with severe abdominal pain on 08/16/[address] abdomen showed right ureter 6 mm stone. Urology was consulted and he underwent stent placement that resulted on perforation of right ureter and urinoma collection in abdomen.CT scan showed evidence of perforated ureter. Patient was started initially on rocephin IV by urology.ID and medicine were consulted to help manage the case. antibiotics were changed to Meropenem IV due to increase in WBC count and Vancomycin was added since patient started spiking fevers and having a trend up on WBC count. Repeat Ct abdomen showed possible abscess formation to RLQ 8 cm in diameter At present on meropenem and vanco IV. IR consulted and patient underwent Right lower quadrant abscess drainage with catheter placement . 1. Retroperitoneal infection with abscess formation to RLQ Acute likely due to extravasation of urine repeat CT abdomen and pelvis showed abscess formation to RLQ 8.2 cm in diameter IR consulted and patient underwent drainage of abscess with catheter placement . Cultures sent patient clinically improving afebrile and WBC trending down from 17 k to 8k ID on consult Dr. Freeman, case discussed continue Meropenem and Vanco for at least 21 days PICC line inserted Follow up culture results from abdominal abscess Patient has been accepted to [facility] for continuation of IV antibiotics Possible d/c if remains stable - will re eval in am , Today - still with about 200ml of seropurulent drainage from catheter 2. Acute respiratory distress with hypoxemia-resolved Most likely secondary to fluid overload and vascular congestion responded well to IV lasix and NRM CTA chest showed no PE , bibasilar atelectasis Promote ambulation , incentive spirometry 3. Ureteral stone with hydronephrosis s/p J Stent Placement 4. Urinoma due to Ureteral Perforation Acute post Ureteral stent placement repeat Ct abdomen showed stable to slightly improved urinoma Navarrete cath out , monitor Urology following , Dr. Coates 5. Uncontrolled type II diabetes mellitus uncontrolled HbgA1c =9.1 Metformin on hold for 48 hours ,since patient received contrast for Ct abdomen continue glucotrol 10 mg po BK instead of Amaryl Added Levemir , increase to 14 units q hs accucheck with coverage 6.DVT proph Hold anticoag sec to hematuria and I&D SCD, early ambulation
[2017-08-28] MEDS: Insulin Detemir 100 Units/ml Inj SC SCH (21:40)
[2017-08-29] MEDS: Meropenem 1 GM in Sodium Chloride 0.9% 100 ML IVPB SCH ×2 (06:00→16:03)
[2017-08-29] MEDS: Insulin Lispro (humaLOG) 100 Units/ml Inj SC SCH ×4 (06:31→22:03)
[2017-08-29] MEDS: GlipiZIDE 10 mg SR Tab PO SCH (08:40)
[2017-08-29] MEDS: Fluconazole IV 100mg/50 ml NS 50 ML IVPB SCH (10:58)
--- NOTE | 2017-08-29 13:31 | CP.PCM.PN ---
Subjective - Date & Time of Evaluation Date of Evaluation: 08/29/17 Time of Evaluation: 08:00 - Subjective Subjective: denies fever or abd pain drainage catheter draining slightly turbid yellow fluid- over 600 cc /24 hrs belly less distended Objective - Vital Signs/Intake and Output Vital Signs (last 24 hours): Temp Pulse Resp BP Pulse Ox 98.2 F 61 18 106/71 97 08/29/17 12:00 08/29/17 12:00 08/29/17 12:00 08/29/17 12:00 08/29/17 12:00 Intake and Output: 08/29/17 08/29/17 06:59 18:59 Output Total 605 Balance -605 - Medications Medications: Current Medications Acetaminophen (Tylenol 325mg Tab) 650 mg PO Q6 PRN PRN Reason: Fever >100.4 F Last Admin: 08/25/17 18:42 Dose: 650 mg Alprazolam (Xanax) 0.25 mg PO Q12 PRN PRN Reason: Anxiety Stop: 09/04/17 21:14 Last Admin: 08/28/17 21:44 Dose: 0.25 mg Docusate Sodium (Colace) 100 mg PO BID [facility] Last Admin: 08/29/17 08:41 Dose: 100 mg Glipizide (Glucotrol Xl) 10 mg PO BRK [facility] Last Admin: 08/29/17 08:40 Dose: 10 mg Meropenem 1 gm/ Sodium (Chloride) 100 mls @ 100 mls/hr IVPB Q8@0700,1500,2300 [facility] PRN Reason: Protocol Last Admin: 08/29/17 06:00 Dose: 100 mls/hr Vancomycin HCl 1 gm/ Sodium (Chloride) 250 mls @ 166.667 mls/hr IVPB Q12 [facility] PRN Reason: Protocol Last Admin: 08/29/17 08:39 Dose: 166.667 mls/hr Fluconazole (Diflucan Iv 100 Mg/50 Ml Ns) 50 mls @ 50 mls/hr IVPB DAILY [facility] PRN Reason: Protocol Last Admin: 08/29/17 10:58 Dose: 50 mls/hr Insulin Detemir (Levemir) 14 units SC HS [facility] Last Admin: 08/28/17 21:40 Dose: 14 units Insulin Human Lispro (Humalog) 0 units SC ACHS [facility] PRN Reason: Protocol Last Admin: 08/29/17 12:38 Dose: 4 units Ketorolac Tromethamine (Toradol) 30 mg IVP Q6 PRN PRN Reason: Pain, moderate (4-7) Last Admin: 08/27/17 18:48 Dose: 30 mg Lactulose (Enulose) 20 gm PO DAILY PRN PRN Reason: Constipation Last Admin: 08/28/17 11:45 Dose: 20 gm Naproxen (Naprosyn Tab) 375 mg PO Q12 [facility] Last Admin: 08/29/17 08:41 Dose: Not Given Ondansetron HCl (Zofran Inj) 4 mg IVP Q6 PRN PRN Reason: Nausea/Vomiting - Labs Labs: 08/28/17 06:00 08/28/17 06:00 PT 14.0 Seconds (9.8-13.1) H 08/27/17 04:40 INR 1.2 (0.9-1.2) 08/27/17 04:40 - Constitutional Appears: Non-toxic, Chronically Ill - Head Exam Head Exam: NORMOCEPHALIC - Eye Exam Eye Exam: PERRL Pupil Exam: NORMAL ACCOMODATION - ENT Exam ENT Exam: Mucous Membranes Dry - Neck Exam Neck Exam: absent: Lymphadenopathy - Respiratory Exam Respiratory Exam: Decreased Breath Sounds - Cardiovascular Exam Cardiovascular Exam: REGULAR RHYTHM - GI/Abdominal Exam GI & Abdominal Exam: Distended, Soft. absent: Tenderness, Organomegaly, Rebound - Rectal Exam Rectal Exam: Deferred - Exam Exam: NORMAL INSPECTION - Extremities Exam Extremities Exam: absent: Pedal Edema - Back Exam Back Exam: absent: CVA tenderness (L), CVA tenderness (R), paraspinal tenderness - Neurological Exam Neurological Exam: Alert, Awake, Oriented x3 - Psychiatric Exam Psychiatric exam: Normal Mood - Skin Skin Exam: Dry Assessment and Plan (1) Retroperitoneal infection Status: Acute (2) Urinoma Status: Acute (3) Uncontrolled type II diabetes mellitus Status: Chronic (4) Ureteral calculus, right Status: Acute (5) Ureteral stone with hydronephrosis Status: Acute - Assessment and Plan (Free Text) Assessment: culture of retroperitoneal fluid + yeast thus far no positive bacterial cultures would consider de-escalating to IV Zosyn or Cefepime continue diflucan May need definitive surgical procedure to repair ureter
--- NOTE | 2017-08-29 14:34 | CP.PCM.PN ---
Subjective - Date & Time of Evaluation Date of Evaluation: 08/29/17 Time of Evaluation: 14:28 - Subjective Subjective: UROLOGHY pt seen today At this time he is afebrile and in no significant pain. Clinically wbc 8.4 voiding without difficulty. aime drainage yesterday 680 cc today 425 cc at this time. will ck with bladder scan for any residual urine. glucose still fluctuates but appears to be improving. plan cont iv meds transfer to [facility] floor Objective - Vital Signs/Intake and Output Vital Signs (last 24 hours): Temp Pulse Resp BP Pulse Ox 98.2 F 61 18 106/71 97 08/29/17 12:00 08/29/17 12:00 08/29/17 12:00 08/29/17 12:00 08/29/17 12:00 Intake and Output: 08/29/17 08/29/17 06:59 18:59 Output Total 605 Balance -605 - Medications Medications: Current Medications Acetaminophen (Tylenol 325mg Tab) 650 mg PO Q6 PRN PRN Reason: Fever >100.4 F Last Admin: 08/25/17 18:42 Dose: 650 mg Alprazolam (Xanax) 0.25 mg PO Q12 PRN PRN Reason: Anxiety Stop: 09/04/17 21:14 Last Admin: 08/28/17 21:44 Dose: 0.25 mg Docusate Sodium (Colace) 100 mg PO BID [facility] Last Admin: 08/29/17 08:41 Dose: 100 mg Glipizide (Glucotrol Xl) 10 mg PO BRK [facility] Last Admin: 08/29/17 08:40 Dose: 10 mg Meropenem 1 gm/ Sodium (Chloride) 100 mls @ 100 mls/hr IVPB Q8@0700,1500,2300 [facility] PRN Reason: Protocol Last Admin: 08/29/17 06:00 Dose: 100 mls/hr Vancomycin HCl 1 gm/ Sodium (Chloride) 250 mls @ 166.667 mls/hr IVPB Q12 [facility] PRN Reason: Protocol Last Admin: 08/29/17 08:39 Dose: 166.667 mls/hr Fluconazole (Diflucan Iv 100 Mg/50 Ml Ns) 50 mls @ 50 mls/hr IVPB DAILY [facility] PRN Reason: Protocol Last Admin: 08/29/17 10:58 Dose: 50 mls/hr Insulin Detemir (Levemir) 14 units SC HS [facility] Last Admin: 08/28/17 21:40 Dose: 14 units Insulin Human Lispro (Humalog) 0 units SC ACHS [facility] PRN Reason: Protocol Last Admin: 08/29/17 12:38 Dose: 4 units Ketorolac Tromethamine (Toradol) 30 mg IVP Q6 PRN PRN Reason: Pain, moderate (4-7) Last Admin: 08/27/17 18:48 Dose: 30 mg Lactulose (Enulose) 20 gm PO DAILY PRN PRN Reason: Constipation Last Admin: 08/28/17 11:45 Dose: 20 gm Naproxen (Naprosyn Tab) 375 mg PO Q12 [facility] Last Admin: 08/29/17 08:41 Dose: Not Given Ondansetron HCl (Zofran Inj) 4 mg IVP Q6 PRN PRN Reason: Nausea/Vomiting - Labs Labs: 08/28/17 06:00 08/28/17 06:00 PT 14.0 Seconds (9.8-13.1) H 08/27/17 04:40 INR 1.2 (0.9-1.2) 08/27/17 04:40
--- NOTE | 2017-08-29 15:56 | CP.PCM.PN ---
Subjective - Date & Time of Evaluation Date of Evaluation: 08/29/17 Time of Evaluation: 10:00 - Subjective Subjective: No fever abd pain pain resolved minimal tenderness feels better no SOB no cough no CP Objective - Vital Signs/Intake and Output Vital Signs (last 24 hours): Temp Pulse Resp BP Pulse Ox 98.2 F 61 18 106/71 97 08/29/17 12:00 08/29/17 12:00 08/29/17 12:00 08/29/17 12:00 08/29/17 12:00 Intake and Output: 08/29/17 08/29/17 06:59 18:59 Output Total 605 Balance -605 - Medications Medications: Current Medications Acetaminophen (Tylenol 325mg Tab) 650 mg PO Q6 PRN PRN Reason: Fever >100.4 F Last Admin: 08/25/17 18:42 Dose: 650 mg Alprazolam (Xanax) 0.25 mg PO Q12 PRN PRN Reason: Anxiety Stop: 09/04/17 21:14 Last Admin: 08/28/17 21:44 Dose: 0.25 mg Clotrimazole (Lotrimin 1% Cream) 1 applic TOP BID [facility] Docusate Sodium (Colace) 100 mg PO BID [facility] Last Admin: 08/29/17 08:41 Dose: 100 mg Glipizide (Glucotrol Xl) 10 mg PO BRK [facility] Last Admin: 08/29/17 08:40 Dose: 10 mg Meropenem 1 gm/ Sodium (Chloride) 100 mls @ 100 mls/hr IVPB Q8@0700,1500,2300 [facility] PRN Reason: Protocol Last Admin: 08/29/17 06:00 Dose: 100 mls/hr Vancomycin HCl 1 gm/ Sodium (Chloride) 250 mls @ 166.667 mls/hr IVPB Q12 [facility] PRN Reason: Protocol Last Admin: 08/29/17 08:39 Dose: 166.667 mls/hr Fluconazole (Diflucan Iv 100 Mg/50 Ml Ns) 50 mls @ 50 mls/hr IVPB DAILY [facility] PRN Reason: Protocol Last Admin: 08/29/17 10:58 Dose: 50 mls/hr Insulin Detemir (Levemir) 14 units SC HS [facility] Last Admin: 08/28/17 21:40 Dose: 14 units Insulin Human Lispro (Humalog) 0 units SC ACHS [facility] PRN Reason: Protocol Last Admin: 08/29/17 12:38 Dose: 4 units Ketorolac Tromethamine (Toradol) 30 mg IVP Q6 PRN PRN Reason: Pain, moderate (4-7) Last Admin: 08/27/17 18:48 Dose: 30 mg Lactulose (Enulose) 20 gm PO DAILY PRN PRN Reason: Constipation Last Admin: 08/28/17 11:45 Dose: 20 gm Metformin HCl (Glucophage) 500 mg PO BIDWM [facility] Naproxen (Naprosyn Tab) 375 mg PO Q12 [facility] Last Admin: 08/29/17 08:41 Dose: Not Given Ondansetron HCl (Zofran Inj) 4 mg IVP Q6 PRN PRN Reason: Nausea/Vomiting - Labs Labs: 08/28/17 06:00 08/28/17 06:00 PT 14.0 Seconds (9.8-13.1) H 08/27/17 04:40 INR 1.2 (0.9-1.2) 08/27/17 04:40 - Constitutional Appears: Non-toxic, No Acute Distress - Head Exam Head Exam: NORMAL INSPECTION, NORMOCEPHALIC - Eye Exam Eye Exam: EOMI, Normal appearance, PERRL Pupil Exam: NORMAL ACCOMMODATION, PERRL - ENT Exam ENT Exam: Mucous Membranes Moist, Normal Exam - Neck Exam Neck Exam: Full ROM, Normal Inspection. absent: Lymphadenopathy - Respiratory Exam Respiratory Exam: Clear to Ausculation Bilateral, NORMAL BREATHING PATTERN - Cardiovascular Exam Cardiovascular Exam: REGULAR RHYTHM, +S1, +S2. absent: Murmur - GI/Abdominal Exam GI & Abdominal Exam: Distended, minimal Tenderness, Normal Bowel Sounds Right drainage catheter with clear yellow urine like discharge - Extremities Exam Extremities Exam: Full ROM, Normal Capillary Refill, Normal Inspection. absent : Joint Swelling, Pedal Edema - Back Exam Back Exam: CVA tenderness (R), Full ROM. absent: CVA tenderness (L), paraspinal tenderness - Neurological Exam Neurological Exam: Alert, Awake, CN II-XII Intact, Normal Gait, Oriented x3 Neuro motor strength exam: Left Upper Extremity: 5, Right Upper Extremity: 5, Left Lower Extremity: 5, Right Lower Extremity: 5 - Psychiatric Exam Psychiatric exam: Anxious, Normal Affect, Normal Mood - Skin Skin Exam: Dry, Normal Color, Warm Assessment and Plan (1) Retroperitoneal infection Status: Acute (2) Ureteral stone with hydronephrosis Status: Acute (3) Urinoma Status: Acute (4) Uncontrolled type II diabetes mellitus Status: Chronic - Assessment and Plan (Free Text) Assessment: 57 year old male with PMH for Type 2 diabetes mellitus, hypercholesterolemia, nephrolithiasis and bladder calculi with cystoscopy 06/28/[address] Coates that showed ureteral stricture and multiple bladder calculi which were evacuated, presented again with severe abdominal pain on 08/16/[address] abdomen showed right ureter 6 mm stone. Urology was consulted and he underwent stent placement that resulted on perforation of right ureter and urinoma collection in abdomen.CT scan showed evidence of perforated ureter. Patient was started initially on rocephin IV by urology.ID and medicine were consulted to help manage the case. antibiotics were changed to Meropenem IV due to increase in WBC count and Vancomycin was added since patient started spiking fevers and having a trend up on WBC count. Repeat Ct abdomen showed possible abscess formation to RLQ 8 cm in diameter At present on meropenem and vanco IV. IR consulted and patient underwent Right lower quadrant abscess drainage with catheter placement . 1. Retroperitoneal infection with abscess formation to RLQ Acute likely due to extravasation of urine from ureteral perforation repeat CT abdomen and pelvis showed abscess formation to RLQ 8.2 cm in diameter IR consulted and patient underwent drainage of abscess with catheter placement . Cultures : vanessa patient clinically improving afebrile and WBC trending down from 17 k to 8k ID on consult Dr. Freeman, case discussed continue Meropenem and Vanco for at least 21 days Add IV Diflucan PICC line inserted Still with large amount of abdominal drainage from Pigtail catheter will cont to monitor in the hospital , dicussed case with Dr Coates 2. Acute respiratory distress with hypoxemia-resolved Most likely secondary to fluid overload and vascular congestion responded well to IV lasix and NRM CTA chest showed no PE , bibasilar atelectasis Promote ambulation , incentive spirometry 3. Ureteral stone with hydronephrosis s/p J Stent Placement 4. Urinoma due to Ureteral Perforation Acute post Ureteral stent placement Navarrete cath out , monitor output - if with elevated residual on bladder , will reinsert Navarrete Urology following , Dr. Coates 5. Uncontrolled type II diabetes mellitus uncontrolled HbgA1c =9.1 Metformin on hold for 48 hours ,since patient received contrast for Ct abdomen - will restart now continue glucotrol 10 mg po BK instead of Amaryl Added Levemir , increase to 14 units q hs accucheck with coverage 6.DVT proph start Lovenox SCD, early ambulation
[2017-08-29] MEDS: Insulin Detemir 100 Units/ml Inj SC SCH (22:07)
[2017-08-30] MEDS: Meropenem 1 GM in Sodium Chloride 0.9% 100 ML IVPB SCH ×4 (00:14→22:35)
[2017-08-30 06:08] LABS: HEMATOCRIT 38.7 % (35.0-51.0); MEAN CELL VOLUME 84.6 fl (80.0-94.0); MEAN CORPUSCULAR HEMOGLOBIN 28.7 pg (27.0-31.0); MEAN CORPUSCULAR HGB CONC 33.9 g/dL (33.0-37.0); RED CELL DISTRIBUTION WIDTH 13.3 % (11.5-14.5); WHITE BLOOD COUNT 11.8 K/uL (4.8-10.8)
[2017-08-30 06:30] LABS: BLOOD UREA NITROGEN 14 mg/dl (9-20); CARBON DIOXIDE 30 mmol/L (22-30); CHLORIDE 103 mmol/L (98-107); GFR AFRICAN-AMERICAN > 60; GLUCOSE,RANDOM 87 mg/dL (75-110); POTASSIUM 3.9 MMOL/L (3.6-5.0); SODIUM 143 mmol/l (132-148)
[2017-08-30] MEDS: Insulin Lispro (humaLOG) 100 Units/ml Inj SC SCH ×4 (06:36→22:10)
[2017-08-30] MEDS: Enoxaparin 40 mg Syringe SC SCH (08:31)
[2017-08-30] MEDS: Fluconazole IV 100mg/50 ml NS 50 ML IVPB SCH (08:31)
[2017-08-30] MEDS: GlipiZIDE 10 mg SR Tab PO SCH (08:33)
--- NOTE | 2017-08-30 10:55 | CP.PCM.PN ---
Subjective - Date & Time of Evaluation Date of Evaluation: 08/30/17 Time of Evaluation: 07:00 - Subjective Subjective: iv rx in progress tolerating well no fever less abd pain Objective - Vital Signs/Intake and Output Vital Signs (last 24 hours): Temp Pulse Resp BP Pulse Ox 97.8 F 91 H 20 103/63 93 L 08/30/17 08:30 08/30/17 08:30 08/30/17 08:30 08/30/17 08:30 08/30/17 08:30 Intake and Output: 08/30/17 08/30/17 06:59 18:59 Intake Total 2150 Output Total 4510 Balance -2360 - Medications Medications: Current Medications Acetaminophen (Tylenol 325mg Tab) 650 mg PO Q6 PRN PRN Reason: Fever >100.4 F Last Admin: 08/25/17 18:42 Dose: 650 mg Alprazolam (Xanax) 0.25 mg PO Q12 PRN PRN Reason: Anxiety Stop: 09/04/17 21:14 Last Admin: 08/28/17 21:44 Dose: 0.25 mg Clotrimazole (Lotrimin 1% Cream) 1 applic TOP BID [facility] Last Admin: 08/30/17 08:32 Dose: 1 applic Docusate Sodium (Colace) 100 mg PO BID [facility] Last Admin: 08/30/17 08:30 Dose: 100 mg Enoxaparin Sodium (Lovenox) 40 mg SC DAILY [facility] PRN Reason: Protocol Last Admin: 08/30/17 08:31 Dose: 40 mg Glipizide (Glucotrol Xl) 10 mg PO BRK [facility] Last Admin: 08/30/17 08:33 Dose: 10 mg Meropenem 1 gm/ Sodium (Chloride) 100 mls @ 100 mls/hr IVPB Q8@0700,1500,2300 [facility] PRN Reason: Protocol Last Admin: 08/30/17 06:21 Dose: 100 mls/hr Vancomycin HCl 1 gm/ Sodium (Chloride) 250 mls @ 166.667 mls/hr IVPB Q12 [facility] PRN Reason: Protocol Last Admin: 08/30/17 08:32 Dose: 166.667 mls/hr Fluconazole (Diflucan Iv 100 Mg/50 Ml Ns) 50 mls @ 50 mls/hr IVPB DAILY [facility] PRN Reason: Protocol Last Admin: 08/30/17 08:31 Dose: 50 mls/hr Insulin Detemir (Levemir) 14 units SC HS [facility] Last Admin: 08/29/17 22:07 Dose: 14 units Insulin Human Lispro (Humalog) 0 units SC ACHS [facility] PRN Reason: Protocol Last Admin: 08/30/17 06:36 Dose: Not Given Ketorolac Tromethamine (Toradol) 30 mg IVP Q6 PRN PRN Reason: Pain, moderate (4-7) Last Admin: 08/27/17 18:48 Dose: 30 mg Lactulose (Enulose) 20 gm PO DAILY PRN PRN Reason: Constipation Last Admin: 08/28/17 11:45 Dose: 20 gm Metformin HCl (Glucophage) 500 mg PO BIDWM [facility] Last Admin: 08/30/17 08:31 Dose: 500 mg Naproxen (Naprosyn Tab) 375 mg PO Q12 [facility] Last Admin: 08/30/17 08:31 Dose: 375 mg Ondansetron HCl (Zofran Inj) 4 mg IVP Q6 PRN PRN Reason: Nausea/Vomiting - Labs Labs: 08/30/17 05:25 08/30/17 05:25 PT 14.0 Seconds (9.8-13.1) H 08/27/17 04:40 INR 1.2 (0.9-1.2) 08/27/17 04:40 - Constitutional Appears: Non-toxic, Chronically Ill - Head Exam Head Exam: NORMOCEPHALIC - Eye Exam Eye Exam: PERRL - ENT Exam ENT Exam: Mucous Membranes Dry - Neck Exam Neck Exam: absent: Lymphadenopathy - Respiratory Exam Respiratory Exam: Decreased Breath Sounds - Cardiovascular Exam Cardiovascular Exam: REGULAR RHYTHM - GI/Abdominal Exam GI & Abdominal Exam: Distended - Rectal Exam Rectal Exam: Deferred - Exam Exam: NORMAL INSPECTION - Extremities Exam Extremities Exam: absent: Pedal Edema - Back Exam Back Exam: absent: CVA tenderness (L), CVA tenderness (R) - Neurological Exam Neurological Exam: Alert, Awake, Oriented x3 - Psychiatric Exam Psychiatric exam: Normal Mood - Skin Skin Exam: Dry Assessment and Plan (1) Retroperitoneal infection Status: Acute (2) Urinoma Status: Acute (3) Uncontrolled type II diabetes mellitus Status: Chronic (4) Ureteral calculus, right Status: Acute (5) Ureteral stone with hydronephrosis Status: Acute - Assessment and Plan (Free Text) Assessment: 57 year old male with diabetes mellitus, hypercholesterolemia,nephrolithiasis and bladder s/p cystoscopy 06/28/[address] Coates that showed ureteral stricture and multiple bladder calculi which were evacuated, presented again with severe abdominal pain on 08/16/[address] abdomen showed right ureter 6 mm stone. Urology was consulted and he underwent stent placement at out pt facility that resulted on perforation of right ureter and urinoma collection in abdomen.CT scan showed evidence of perforated ureter. Patient was started initially on rocephin IV by urology. ID consulted when WBC maria elena despite iv antibiotics. antibiotics were changed to Meropenem IV due to increase in WBC count and Vancomycin was added since patient started spiking fevers and having a trend up on WBC count. Repeat Ct abdomen showed possible abscess formation to RLQ 8 cm in diameter At present on meropenem and vanco IV. IR consulted and patient underwent Right lower quadrant abscess drainage with catheter placement . Now [place] in place Less drainage from retroperitoneal drain
--- NOTE | 2017-08-30 12:03 | CP.PCM.PN ---
Subjective - Date & Time of Evaluation Date of Evaluation: 08/30/17 Time of Evaluation: 11:00 - Subjective Subjective: Patient seen and examined bedside. Feeling better. Debnies any abdominal pain. Hemodynamically stable, afebrile. carlisle i n placde with good urine output last 24 hours 2160 ml ERIK drain with total 2350 ml output last 24 hours Output from ERIK drain from 7 AM- 5 Pm is 650 ml and from carlisle is 900 ml Objective - Vital Signs/Intake and Output Vital Signs (last 24 hours): Temp Pulse Resp BP Pulse Ox 97.8 F 91 H 20 103/63 93 L 08/30/17 08:30 08/30/17 08:30 08/30/17 08:30 08/30/17 08:30 08/30/17 08:30 Intake and Output: 08/30/17 08/30/17 06:59 18:59 Intake Total 2150 Output Total 4510 Balance -2360 - Medications Medications: Current Medications Acetaminophen (Tylenol 325mg Tab) 650 mg PO Q6 PRN PRN Reason: Fever >100.4 F Last Admin: 08/25/17 18:42 Dose: 650 mg Alprazolam (Xanax) 0.25 mg PO Q12 PRN PRN Reason: Anxiety Stop: 09/04/17 21:14 Last Admin: 08/28/17 21:44 Dose: 0.25 mg Clotrimazole (Lotrimin 1% Cream) 1 applic TOP BID [facility] Last Admin: 08/30/17 08:32 Dose: 1 applic Docusate Sodium (Colace) 100 mg PO BID [facility] Last Admin: 08/30/17 08:30 Dose: 100 mg Enoxaparin Sodium (Lovenox) 40 mg SC DAILY [facility] PRN Reason: Protocol Last Admin: 08/30/17 08:31 Dose: 40 mg Glipizide (Glucotrol Xl) 10 mg PO BRK [facility] Last Admin: 08/30/17 08:33 Dose: 10 mg Meropenem 1 gm/ Sodium (Chloride) 100 mls @ 100 mls/hr IVPB Q8@0700,1500,2300 [facility] PRN Reason: Protocol Last Admin: 08/30/17 06:21 Dose: 100 mls/hr Vancomycin HCl 1 gm/ Sodium (Chloride) 250 mls @ 166.667 mls/hr IVPB Q12 [facility] PRN Reason: Protocol Last Admin: 08/30/17 08:32 Dose: 166.667 mls/hr Fluconazole (Diflucan Iv 100 Mg/50 Ml Ns) 50 mls @ 50 mls/hr IVPB DAILY [facility] PRN Reason: Protocol Last Admin: 08/30/17 08:31 Dose: 50 mls/hr Insulin Detemir (Levemir) 14 units SC HS [facility] Last Admin: 08/29/17 22:07 Dose: 14 units Insulin Human Lispro (Humalog) 0 units SC ACHS [facility] PRN Reason: Protocol Last Admin: 08/30/17 11:57 Dose: 3 units Ketorolac Tromethamine (Toradol) 30 mg IVP Q6 PRN PRN Reason: Pain, moderate (4-7) Last Admin: 08/27/17 18:48 Dose: 30 mg Lactulose (Enulose) 20 gm PO DAILY PRN PRN Reason: Constipation Last Admin: 08/28/17 11:45 Dose: 20 gm Metformin HCl (Glucophage) 500 mg PO BIDWM [facility] Last Admin: 08/30/17 08:31 Dose: 500 mg Naproxen (Naprosyn Tab) 375 mg PO Q12 [facility] Last Admin: 08/30/17 08:31 Dose: 375 mg Ondansetron HCl (Zofran Inj) 4 mg IVP Q6 PRN PRN Reason: Nausea/Vomiting - Labs Labs: 08/30/17 05:25 08/30/17 05:25 PT 14.0 Seconds (9.8-13.1) H 08/27/17 04:40 INR 1.2 (0.9-1.2) 08/27/17 04:40 - Constitutional Appears: Non-toxic, No Acute Distress - Head Exam Head Exam: ATRAUMATIC, NORMAL INSPECTION, NORMOCEPHALIC - Eye Exam Eye Exam: EOMI, Normal appearance, PERRL Pupil Exam: NORMAL ACCOMODATION - ENT Exam ENT Exam: Mucous Membranes Moist, Normal Exam - Neck Exam Neck Exam: Full ROM, Normal Inspection - Respiratory Exam Respiratory Exam: Clear to Ausculation Bilateral, NORMAL BREATHING PATTERN. absent: Rales, Rhonchi, Wheezes - Cardiovascular Exam Cardiovascular Exam: REGULAR RHYTHM, RRR, +S1, +S2. absent: JVD - GI/Abdominal Exam GI & Abdominal Exam: Soft, Normal Bowel Sounds. absent: Distended, Guarding, Tenderness, Rebound Additional comments: ERIK drain to RLQ no tenderness less fullness to right lower quadrant - Rectal Exam Rectal Exam: Deferred - Extremities Exam Extremities Exam: Full ROM, Normal Capillary Refill, Normal Inspection. absent : Calf Tenderness, Pedal Edema - Back Exam Back Exam: NORMAL INSPECTION - Neurological Exam Neurological Exam: Alert, Awake, CN II-XII Intact, Oriented x3 - Psychiatric Exam Psychiatric exam: Normal Affect, Normal Mood - Skin Skin Exam: Dry, Normal Color, Warm Assessment and Plan - Assessment and Plan (Free Text) Assessment: 57 year old male with PMH for Type 2 diabetes mellitus, hypercholesterolemia, nephrolithiasis and bladder calculi with cystoscopy 06/28/[address] Coates that showed ureteral stricture and multiple bladder calculi which were evacuated, presented again with severe abdominal pain on 08/16/[address] abdomen showed right ureter 6 mm stone. Urology was consulted and he underwent stent placement that resulted on perforation of right ureter and urinoma collection in abdomen.CT scan showed evidence of perforated ureter.Stent was placed . Patient was started initially on rocephin IV by urology.ID and medicine were consulted to help manage the case. Antibiotics were changed to Meropenem IV due to increase in WBC count and Vancomycin was added since patient started spiking fevers and having a trend up on WBC count. Repeat Ct abdomen showed possible abscess formation to RLQ 8 cm in diameter and he underwent RLQ abscess drainage with pig tail placement . At present ERIK drain still in place with large amount of urine output from Erik drain almost equal amount to urine from [place] catheter . Diflucan added to IV antibiotics since body fluid and urine cx growing yeast. 1. Retroperitoneal infection with abscess formation to RLQ Acute likely due to extravasation of urine from ureteral perforation repeat CT abdomen and pelvis showed abscess formation to RLQ 8.2 cm in diameter IR consulted and patient underwent drainage of abscess with catheter placement . Cultures growing vanessa Pig tail still in place with large amount of urine output. discussed with urology . if drainage continuos at this rate patient might need surgical correction of ureter perforation. Continue monitoring with strict I/O patient clinically improving afebrile and WBC trending down from 17 k to 11 k ID on consult Dr. Freeman, case discussed continue Meropenem, Vanco and Diflucan . As per Id will consider deescalating antibiotics to Zosyn IV or Cefepime PICC line inserted if no improvement possible transfer to [facility] 2. Acute respiratory distress with hypoxemia-resolved Most likely secondary to fluid overload and vascular congestion responded well to IV lasix and NRM CTA chest showed no PE , bibasilar atelectasis Promote ambulation , incentive spirometry 3. Ureteral stone with hydronephrosis s/p J Stent Placement with large urine output from RLQ pig tail . patient will possibly need surgical correction of perforated ureter 4. Urinoma due to Ureteral Perforation Acute post Ureteral stent placement With largge amount of uroine output from RLQ pig tail . carlisle in place Monitor closely Urology following , Dr. Coates 5. Uncontrolled type II diabetes mellitus uncontrolled HbgA1c =9.1 Metformin on hold for 48 hours ,since patient received contrast for Ct abdomen - will restart now continue glucotrol 10 mg po BK instead of Amaryl Added Levemir , increase to 14 units q hs accucheck with coverage 6.DVT proph start Lovenox SCD, early ambulation
--- NOTE | 2017-08-30 13:03 | CP.PCM.PN ---
Subjective - Date & Time of Evaluation Date of Evaluation: 08/30/17 Time of Evaluation: 12:59 - Subjective Subjective: UROLOGY pt afebrile in no acute pain. Abd full on right side but not tender. Urine clear in carlisle. Perc drainage remains significant. Glucose wnl. Bun Creat wnl There is a n uptic in wbc count this am. Plan cont iv antibiotic therapy update labs and cont to monitor output Objective - Vital Signs/Intake and Output Vital Signs (last 24 hours): Temp Pulse Resp BP Pulse Ox 97.8 F 91 H 20 103/63 93 L 08/30/17 08:30 08/30/17 08:30 08/30/17 08:30 08/30/17 08:30 08/30/17 08:30 Intake and Output: 08/30/17 08/30/17 06:59 18:59 Intake Total 2150 Output Total 4510 Balance -2360 - Medications Medications: Current Medications Acetaminophen (Tylenol 325mg Tab) 650 mg PO Q6 PRN PRN Reason: Fever >100.4 F Last Admin: 08/25/17 18:42 Dose: 650 mg Alprazolam (Xanax) 0.25 mg PO Q12 PRN PRN Reason: Anxiety Stop: 09/04/17 21:14 Last Admin: 08/28/17 21:44 Dose: 0.25 mg Clotrimazole (Lotrimin 1% Cream) 1 applic TOP BID [facility] Last Admin: 08/30/17 08:32 Dose: 1 applic Docusate Sodium (Colace) 100 mg PO BID [facility] Last Admin: 08/30/17 08:30 Dose: 100 mg Enoxaparin Sodium (Lovenox) 40 mg SC DAILY [facility] PRN Reason: Protocol Last Admin: 08/30/17 08:31 Dose: 40 mg Glipizide (Glucotrol Xl) 10 mg PO BRK [facility] Last Admin: 08/30/17 08:33 Dose: 10 mg Meropenem 1 gm/ Sodium (Chloride) 100 mls @ 100 mls/hr IVPB Q8@0700,1500,2300 [facility] PRN Reason: Protocol Last Admin: 08/30/17 06:21 Dose: 100 mls/hr Vancomycin HCl 1 gm/ Sodium (Chloride) 250 mls @ 166.667 mls/hr IVPB Q12 [facility] PRN Reason: Protocol Last Admin: 08/30/17 08:32 Dose: 166.667 mls/hr Fluconazole (Diflucan Iv 100 Mg/50 Ml Ns) 50 mls @ 50 mls/hr IVPB DAILY [facility] PRN Reason: Protocol Last Admin: 08/30/17 08:31 Dose: 50 mls/hr Insulin Detemir (Levemir) 14 units SC HS [facility] Last Admin: 08/29/17 22:07 Dose: 14 units Insulin Human Lispro (Humalog) 0 units SC ACHS [facility] PRN Reason: Protocol Last Admin: 08/30/17 11:57 Dose: 3 units Ketorolac Tromethamine (Toradol) 30 mg IVP Q6 PRN PRN Reason: Pain, moderate (4-7) Last Admin: 08/27/17 18:48 Dose: 30 mg Lactulose (Enulose) 20 gm PO DAILY PRN PRN Reason: Constipation Last Admin: 08/28/17 11:45 Dose: 20 gm Metformin HCl (Glucophage) 500 mg PO BIDWM [facility] Last Admin: 08/30/17 08:31 Dose: 500 mg Naproxen (Naprosyn Tab) 375 mg PO Q12 [facility] Last Admin: 08/30/17 08:31 Dose: 375 mg Ondansetron HCl (Zofran Inj) 4 mg IVP Q6 PRN PRN Reason: Nausea/Vomiting - Labs Labs: 08/30/17 05:25 08/30/17 05:25 PT 14.0 Seconds (9.8-13.1) H 08/27/17 04:40 INR 1.2 (0.9-1.2) 08/27/17 04:40
[2017-08-30] MEDS: Insulin Detemir 100 Units/ml Inj SC SCH (22:45)
[2017-08-31] MEDS: Meropenem 1 GM in Sodium Chloride 0.9% 100 ML IVPB SCH ×2 (06:05→15:13)
[2017-08-31 06:51] LABS: BLOOD UREA NITROGEN 14 mg/dl (9-20); CALCIUM 9.3 mg/dL (8.4-10.2); CARBON DIOXIDE 29 mmol/L (22-30); CHLORIDE 104 mmol/L (98-107); GFR AFRICAN-AMERICAN > 60; GLUCOSE,RANDOM 92 mg/dL (75-110); POTASSIUM 4.2 MMOL/L (3.6-5.0); SODIUM 140 mmol/l (132-148)
[2017-08-31] MEDS: Insulin Lispro (humaLOG) 100 Units/ml Inj SC SCH ×2 (06:54→12:04)
[2017-08-31 08:22] LABS: HEMATOCRIT 38.4 % (35.0-51.0); MEAN CORPUSCULAR HEMOGLOBIN 29.3 pg (27.0-31.0); MEAN CORPUSCULAR HGB CONC 34.9 g/dL (33.0-37.0); RED CELL DISTRIBUTION WIDTH 13.2 % (11.5-14.5); WHITE BLOOD COUNT 10.2 K/uL (4.8-10.8)
[2017-08-31] MEDS: GlipiZIDE 10 mg SR Tab PO SCH (08:49)
[2017-08-31] MEDS: Enoxaparin 40 mg Syringe SC SCH (08:50)
[2017-08-31] MEDS: Fluconazole IV 100mg/50 ml NS 50 ML IVPB SCH (12:05)
--- NOTE | 2017-08-31 14:01 | CP.PCM.PN ---
Subjective - Date & Time of Evaluation Date of Evaluation: 08/31/17 Time of Evaluation: 11:00 - Subjective Subjective: Patient seen and examined bedside. Feeling better. Denies any abdominal pain or discomfort ERIK drain to RLQ with 1470 ml output last [address] with 1850 ml output last 24 hours hemodynamically stable, afebrile No acute issues overnight Objective - Vital Signs/Intake and Output Vital Signs (last 24 hours): Temp Pulse Resp BP Pulse Ox 98.7 F 81 20 121/81 95 08/31/17 07:58 08/31/17 07:58 08/31/17 07:58 08/31/17 07:58 08/31/17 07:58 Intake and Output: 08/31/17 08/31/17 06:59 18:59 Intake Total 700 Output Total 1620 Balance -920 - Medications Medications: Current Medications Acetaminophen (Tylenol 325mg Tab) 650 mg PO Q6 PRN PRN Reason: Fever >100.4 F Last Admin: 08/25/17 18:42 Dose: 650 mg Alprazolam (Xanax) 0.25 mg PO Q12 PRN PRN Reason: Anxiety Stop: 09/04/17 21:14 Last Admin: 08/28/17 21:44 Dose: 0.25 mg Clotrimazole (Lotrimin 1% Cream) 1 applic TOP BID [facility] Last Admin: 08/31/17 12:04 Dose: 1 applic Docusate Sodium (Colace) 100 mg PO BID [facility] Last Admin: 08/31/17 08:49 Dose: 100 mg Enoxaparin Sodium (Lovenox) 40 mg SC DAILY [facility] PRN Reason: Protocol Last Admin: 08/31/17 08:50 Dose: 40 mg Glipizide (Glucotrol Xl) 10 mg PO BRK [facility] Last Admin: 08/31/17 08:49 Dose: 10 mg Meropenem 1 gm/ Sodium (Chloride) 100 mls @ 100 mls/hr IVPB Q8@0700,1500,2300 [facility] PRN Reason: Protocol Last Admin: 08/31/17 06:05 Dose: 100 mls/hr Vancomycin HCl 1 gm/ Sodium (Chloride) 250 mls @ 166.667 mls/hr IVPB Q12 [facility] PRN Reason: Protocol Last Admin: 08/31/17 08:57 Dose: 166.667 mls/hr Fluconazole (Diflucan Iv 100 Mg/50 Ml Ns) 50 mls @ 50 mls/hr IVPB DAILY [facility] PRN Reason: Protocol Last Admin: 08/31/17 12:05 Dose: 50 mls/hr Insulin Detemir (Levemir) 14 units SC HS [facility] Last Admin: 08/30/17 22:45 Dose: Not Given Insulin Human Lispro (Humalog) 0 units SC ACHS [facility] PRN Reason: Protocol Last Admin: 08/31/17 12:04 Dose: 3 units Ketorolac Tromethamine (Toradol) 30 mg IVP Q6 PRN PRN Reason: Pain, moderate (4-7) Last Admin: 08/27/17 18:48 Dose: 30 mg Lactulose (Enulose) 20 gm PO DAILY PRN PRN Reason: Constipation Last Admin: 08/28/17 11:45 Dose: 20 gm Metformin HCl (Glucophage) 500 mg PO BIDWM [facility] Last Admin: 08/31/17 08:49 Dose: 500 mg Naproxen (Naprosyn Tab) 375 mg PO Q12 [facility] Last Admin: 08/31/17 08:51 Dose: 375 mg Ondansetron HCl (Zofran Inj) 4 mg IVP Q6 PRN PRN Reason: Nausea/Vomiting - Labs Labs: 08/31/17 08:10 08/31/17 05:30 PT 14.0 Seconds (9.8-13.1) H 08/27/17 04:40 INR 1.2 (0.9-1.2) 08/27/17 04:40 - Constitutional Appears: Non-toxic, No Acute Distress - Head Exam Head Exam: ATRAUMATIC - Eye Exam Eye Exam: EOMI, Normal appearance, PERRL Pupil Exam: NORMAL ACCOMODATION - ENT Exam ENT Exam: Mucous Membranes Moist, Normal Exam - Neck Exam Neck Exam: Full ROM, Normal Inspection - Respiratory Exam Respiratory Exam: Clear to Ausculation Bilateral, NORMAL BREATHING PATTERN. absent: Rales, Rhonchi, Wheezes - Cardiovascular Exam Cardiovascular Exam: REGULAR RHYTHM, RRR, +S1, +S2. absent: JVD - GI/Abdominal Exam GI & Abdominal Exam: Soft, Normal Bowel Sounds. absent: Distended, Guarding, Tenderness, Rebound Additional comments: ERIK drain to RLQ - Rectal Exam Rectal Exam: Deferred - Extremities Exam Extremities Exam: Full ROM, Normal Capillary Refill, Normal Inspection. absent : Calf Tenderness, Pedal Edema - Back Exam Back Exam: NORMAL INSPECTION - Neurological Exam Neurological Exam: Alert, Awake, CN II-XII Intact, Oriented x3 - Psychiatric Exam Psychiatric exam: Normal Affect, Normal Mood - Skin Skin Exam: Dry, Intact, Normal Color, Warm Assessment and Plan - Assessment and Plan (Free Text) Assessment: 57 year old male with PMH for Type 2 diabetes mellitus, hypercholesterolemia, nephrolithiasis and bladder calculi with cystoscopy 06/28/[address] Coates that showed ureteral stricture and multiple bladder calculi which were evacuated, presented again with severe abdominal pain on 08/16/[address] abdomen showed right ureter 6 mm stone. Urology was consulted and he underwent stent placement that resulted on perforation of right ureter and urinoma collection in abdomen.CT scan showed evidence of perforated ureter.Stent was placed . Patient was started initially on rocephin IV by urology.ID and medicine were consulted to help manage the case. Antibiotics were changed to Meropenem IV due to increase in WBC count and Vancomycin was added since patient started spiking fevers and having a trend up on WBC count. Repeat Ct abdomen showed possible abscess formation to RLQ 8 cm in diameter and he underwent RLQ abscess drainage with pig tail placement . At present ERIK drain still in place with large amount of urine output from Erik drain almost equal amount to urine from [place] catheter . Diflucan added to IV antibiotics since body fluid and urine cx growing yeast. Discussed with Dr. Coates . patient will be discharged to [facility] for continuation of IV antibiotics and monitoring of ERIK drain output for at least 2 weeks If output does not improve he will need surgical correction of ureter perforation will d/c patient to [facility] and Zosyn and diflucan IV for 2 more weeks will continue metformin , gliucotrol and levemir for diabetes control 1. Retroperitoneal infection with abscess formation to RLQ Acute likely due to extravasation of urine from ureteral perforation repeat CT abdomen and pelvis showed abscess formation to RLQ 8.2 cm in diameter IR consulted and patient underwent drainage of abscess with catheter placement . Cultures growing vanessa Pig tail still in place with large amount of urine output. Discussed with urology .Will discharge patient to [facility] for continuation of Iv antibiotics. continue monitor ERIK drain output for at least 2 more weeks. If drainage continuos at this rate patient might need surgical correction of ureter perforation. Continue monitoring with strict I/O patient clinically improved afebrile and WBC trending down from 17 k to 10 K ID on consult Dr. Freeman, case discussed was treated with Meropenem, Vanco and Diflucan . As per Id will = deescalating antibiotics to Zosyn IV . continue diflucan PICC line in place 2. Acute respiratory distress with hypoxemia-resolved Most likely secondary to fluid overload and vascular congestion responded well to IV lasix and NRM CTA chest showed no PE , bibasilar atelectasis Promote ambulation , incentive spirometry 3. Ureteral stone with hydronephrosis s/p J Stent Placement with large urine output from RLQ pig tail . Patient will possibly need surgical correction of perforated ureter if no improvement of leakage 4. Urinoma due to Ureteral Perforation Acute post Ureteral stent placement With large amount of urine output from RLQ pig tail . D/c carlisle Continue monitor ERIK drain output for 2 more weeks Continue IV Zosyn and Diflucan to be followed by Dr. Coates 5. Uncontrolled type II diabetes mellitus uncontrolled HbgA1c =9.1 Metformin 500 mg po BID continue glucotrol 10 mg po BK instead of Amaryl Added Levemir , increase to 14 units q hs accucheck with coverage 6.DVT proph on Lovenox SCD, early ambulation
--- NOTE | 2017-08-31 16:13 | CP.PCM.PN ---
Subjective - Date & Time of Evaluation Date of Evaluation: 08/31/17 Time of Evaluation: 16:09 - Subjective Subjective: UROLOGY pt seen today with no complaints of pain. He has no fever Glucose wnl wbc wnl. percutaneous drainage remains significant. He will rermain on iv antibiotics for approx 2 weeks. during this time will monitor output and decide if intervention will be required to seral ureteral leak. Objective - Vital Signs/Intake and Output Vital Signs (last 24 hours): Temp Pulse Resp BP Pulse Ox 98.7 F 81 20 121/81 95 08/31/17 07:58 08/31/17 07:58 08/31/17 07:58 08/31/17 07:58 08/31/17 07:58 Intake and Output: 08/31/17 08/31/17 06:59 18:59 Intake Total 700 Output Total 1620 Balance -920 - Medications Medications: Current Medications Acetaminophen (Tylenol 325mg Tab) 650 mg PO Q6 PRN PRN Reason: Fever >100.4 F Last Admin: 08/25/17 18:42 Dose: 650 mg Alprazolam (Xanax) 0.25 mg PO Q12 PRN PRN Reason: Anxiety Stop: 09/04/17 21:14 Last Admin: 08/28/17 21:44 Dose: 0.25 mg Clotrimazole (Lotrimin 1% Cream) 1 applic TOP BID [facility] Last Admin: 08/31/17 12:04 Dose: 1 applic Docusate Sodium (Colace) 100 mg PO BID [facility] Last Admin: 08/31/17 08:49 Dose: 100 mg Enoxaparin Sodium (Lovenox) 40 mg SC DAILY [facility] PRN Reason: Protocol Last Admin: 08/31/17 08:50 Dose: 40 mg Glipizide (Glucotrol Xl) 10 mg PO BRK [facility] Last Admin: 08/31/17 08:49 Dose: 10 mg Meropenem 1 gm/ Sodium (Chloride) 100 mls @ 100 mls/hr IVPB Q8@0700,1500,2300 [facility] PRN Reason: Protocol Last Admin: 08/31/17 15:13 Dose: 100 mls/hr Vancomycin HCl 1 gm/ Sodium (Chloride) 250 mls @ 166.667 mls/hr IVPB Q12 [facility] PRN Reason: Protocol Last Admin: 08/31/17 08:57 Dose: 166.667 mls/hr Fluconazole (Diflucan Iv 100 Mg/50 Ml Ns) 50 mls @ 50 mls/hr IVPB DAILY [facility] PRN Reason: Protocol Last Admin: 08/31/17 12:05 Dose: 50 mls/hr Insulin Detemir (Levemir) 14 units SC HS [facility] Last Admin: 08/30/17 22:45 Dose: Not Given Insulin Human Lispro (Humalog) 0 units SC ACHS [facility] PRN Reason: Protocol Last Admin: 08/31/17 12:04 Dose: 3 units Ketorolac Tromethamine (Toradol) 30 mg IVP Q6 PRN PRN Reason: Pain, moderate (4-7) Last Admin: 08/27/17 18:48 Dose: 30 mg Lactulose (Enulose) 20 gm PO DAILY PRN PRN Reason: Constipation Last Admin: 08/28/17 11:45 Dose: 20 gm Metformin HCl (Glucophage) 500 mg PO BIDWM [facility] Last Admin: 08/31/17 08:49 Dose: 500 mg Naproxen (Naprosyn Tab) 375 mg PO Q12 [facility] Last Admin: 08/31/17 08:51 Dose: 375 mg Ondansetron HCl (Zofran Inj) 4 mg IVP Q6 PRN PRN Reason: Nausea/Vomiting - Labs Labs: 08/31/17 08:10 08/31/17 05:30 PT 14.0 Seconds (9.8-13.1) H 08/27/17 04:40 INR 1.2 (0.9-1.2) 08/27/17 04:40
[2017-08-31 16:44] VITALS: BP 123/82; PULSE 92; RESP 18; TEMP 98.3; O2SAT 96
== END 2017-08-31 16:56 | DRG 372 ==
LOC: H.ER 21:28 → H.ERHOLD 08-21 01:02 → H.MEDSURG1 08-21 04:45 → OBSVTOIN 08-22 11:54 → H.TEL 08-25 20:15 → H.MEDSURG1 08-29 23:42
PROVIDERS: ADMIT Urology; ATTEND Urology
PROC: 0W9F30Z Drainage of Abdominal Wall with Drainage Device, Percutaneous Approach (ICD-10-PCS; principal; 2017-08-27)
PROC: 02HV33Z Insertion of Infusion Device into Superior Vena Cava, Percutaneous Approach (ICD-10-PCS; 2017-08-27)
PROC: B518ZZA Fluoroscopy of Superior Vena Cava, Guidance (ICD-10-PCS; 2017-08-27)
PROC: 3E04329 Introduction of Other Anti-infective into Central Vein, Percutaneous Approach (ICD-10-PCS; 2017-08-27)
DX: K68.9 Other disorders of retroperitoneum (principal); L02.211 Cutaneous abscess of abdominal wall; E87.3 Alkalosis; E11.65 Type 2 diabetes mellitus with hyperglycemia; E87.70 Fluid overload, unspecified; K76.0 Fatty (change of) liver, not elsewhere classified; N13.2 Hydronephrosis with renal and ureteral calculous obstruction; J98.11 Atelectasis; N35.8 Other urethral stricture; N36.8 Other specified disorders of urethra; N21.0 Calculus in bladder; R09.02 Hypoxemia; E78.00 Pure hypercholesterolemia, unspecified; D72.829 Elevated white blood cell count, unspecified; Z87.442 Personal history of urinary calculi

== ENCOUNTER → 2017-09-29 | Day surgery (SDC) | payer OTHER ==
[2017-09-24 08:51] VITALS: BMI 26.6
[~2017-09-29] MED LIST: Iohexol 240 100 ML IJ ONE; Iohexol 300 100 ML IJ ONE; Lactated Ringer's 1,000 ML IV ONE; Lidocaine 2% Jelly (Uro-Jet) ONE; Lidocaine 2% Jelly (Uro-Jet) TOP ONE; Lidocaine 2% MPF (5 ml) Inj ONE; Midazolam 2 MG/2 ML VIAL ONE; Phenylephrine 10 mg/ml Inj ONE; Propofol 10 mg/ml Inj (20 ML) ONE; Succinylcholine 200 mg/10 ml Inj IV ONE; cefTRIAXone (Rocephin) 1 gm Inj ONE; ePHEDrine 50 mg/ml Inj ONE
[2017-09-29 07:45] LABS: BLOOD UREA NITROGEN 18 mg/dl (9-20); CALCIUM 9.4 mg/dL (8.4-10.2); CARBON DIOXIDE 25 mmol/L (22-30); CHLORIDE 105 mmol/L (98-107); GFR AFRICAN-AMERICAN > 60; GLUCOSE,RANDOM 143 mg/dL (75-110); POTASSIUM 4.1 MMOL/L (3.6-5.0); SODIUM 142 mmol/l (132-148)
[2017-09-29 10:25] VITALS: RESP 18
[2017-09-29 11:45] VITALS: BP 119/65; PULSE 87; TEMP 97.5; O2SAT 98
--- NOTE | 2017-09-29 14:05 | OP ---
PROCEDURE DATE: 09/29/2017 PREOPERATIVE DIAGNOSIS: Right hydronephrosis with J-stent. POSTOPERATIVE DIAGNOSIS: Right hydronephrosis with J-stent. PROCEDURE PERFORMED: Cystoscopy, removal of J-stent, right retrograde pyelogram. DESCRIPTION OF PROCEDURE: The patient was placed in the operating room table in the dorsal lithotomy position, given general anesthesia. The area of the groin was draped and prepped in the sterile manner. Using #21 cystoscope, I entered into the bladder atraumatically. I identified the right J-stent. I pulled the J-stent out just enough to have it exposed at the distal tip of the penis. At that point, I threaded a straight Sensor wire through that tube and fluoroscopically back in the area of the renal pelvis. At this time, I did a retrograde pyelogram alongside the existing wire and it showed an intact ureter from bladder to renal pelvis. There was no hydronephrosis left at this time. I did not see any negative shadows within the renal pelvis at this time. Then the Sensor wire was removed. The patient then was taken from the operating room in good condition. Nieves Coates MD
== END | disposition home or self-care (01) ==
LOC: H.OPSURG 06:10
PROVIDERS: ATTEND Urology
DX: N13.39 Other hydronephrosis (principal); E11.9 Type 2 diabetes mellitus without complications; E78.5 Hyperlipidemia, unspecified
CPT/HCPCS: 36415; 52310; 80048; 82948; 88304; J0330; J2250; J2370; J2704; J3010; J7120; Q9966; Q9967